=== PATIENT | male | born 1950 | race Caucasian/White ===

== ENCOUNTER 2017-09-26 19:23 | Inpatient (IN) | payer MEDICARE ==
[2017-09-26] MEDS ORDERED: Ketorolac 30 MG/ML SDV IVPUSH ONE (19:34)
[2017-09-26] MEDS: Sodium Chloride 0.9% 10 ML Syringe FLUSH PRN ×2 (19:42→19:43)
--- NOTE | 2017-09-26 19:57 | EDM.PDOC ---
ED HPI GENERAL MEDICAL PROBLEM - General Chief Complaint: Abdominal Pain Stated Complaint: STOMACH PAIN Time Seen by Provider: 09/26/17 19:23 Source of Information: Reports: Patient, Family History Limitations: Reports: No Limitations - History of Present Illness INITIAL COMMENTS - FREE TEXT/NARRATIVE: 67 y.o.w.m in prev healthy condition, came with his SO to the ed 5 days after he noticed abd. pain which was getting so bad deciding to come to the ED. No Trauma, no prev surgeries. worst pain at his left lower abdomen, no blood in stool. No N/V/D no Dizziness, no other acute medical issues. BP127/97 temp 36.8 RR 18 Pulse ox 98% on RA, pulse 87. Onset Date: 09/21/17 Onset Time: 06:00 Duration: Day(s):, Getting Worse Location: Reports: Abdomen Quality: Reports: Ache, Burning Severity: Moderate Improves with: Reports: Rest Worsens with: Reports: Movement Context: Reports: Other Lower Abdominal Pain Score (Numeric/FACES): 10 - Related Data Allergies Allergy/AdvReac Type Severity Reaction Status Date / Time No Known Allergies Allergy Verified 09/26/17 19:29 Home Meds: Home Meds NK [No Known Home Meds] 09/26/17 [History] ED ROS GENERAL - Review of Systems Review Of Systems: See Below Constitutional: Reports: No Symptoms HEENT: Reports: No Symptoms Respiratory: Reports: No Symptoms Cardiovascular: Reports: No Symptoms Endocrine: Reports: No Symptoms GI/Abdominal: Reports: Abdominal Pain : Reports: No Symptoms Musculoskeletal: Reports: No Symptoms Skin: Reports: No Symptoms Neurological: Reports: No Symptoms Psychiatric: Reports: No Symptoms Hematologic/Lymphatic: Reports: No Symptoms Immunologic: Reports: No Symptoms ED EXAM, GI/ABD - Physical Exam Exam: See Below Exam Limited By: No Limitations General Appearance: Alert, WD/WN, Moderate Distress Eyes: Bilateral: Normal Appearance Ears: Normal External Exam Nose: Normal Inspection, Normal Mucosa Throat/Mouth: Normal Inspection, Normal Lips Head: Atraumatic, Normocephalic Neck: Normal Inspection, Supple, Non-Tender, Full Range of Motion Respiratory/Chest: No Respiratory Distress, Lungs Clear, Normal Breath Sounds, No Accessory Muscle Use, Chest Non-Tender Cardiovascular: Normal Peripheral Pulses, Regular Rate, Rhythm, No Edema GI/Abdominal Exam: Distended, Guarding, Rigid, Tender, Abnormal Bowel Sounds (Male) Exam: No Hernia Rectal (Males) Exam: Deferred Back Exam: Normal Inspection, Full Range of Motion Extremities: Normal Inspection, Normal Range of Motion, Non-Tender, No Pedal Edema, Normal Capillary Refill Neurological: Alert, Oriented, CN II-XII Intact, Normal Cognition, Abnormal Gait (due to abd.pain) Psychiatric: Normal Affect, Normal Mood Skin Exam: Warm, Dry, Intact, Normal Color, No Rash Lymphatic: No Adenopathy EKG INTERPRETATION EKG Date: 09/26/17 Time: 22:57 Rhythm: NSR Rate (Beats/Min): 106 [place]: LAD-Left [place] Deviation P-Wave: Present QRS: Normal ST-T: Normal QT: Normal Comparison: NA - No Prior EKG Course - Vital Signs Text/Narrative:: 67 y.o.w.m in prev healthy condition, came with his SO to the ed 5 days after he noticed abd. pain which was getting so bad deciding to come to the ED. No Trauma, no prev surgeries. worst pain at his left lower abdomen, no blood in stool. No N/V/D no Dizziness, no other acute medical issues. BP127/97 temp 36.8 RR 18 Pulse ox 98% on RA, pulse 87. PE: Prev healthy 67 y.o.w.m came to the ed 5 days after he noticed left lower abd.pain which got progressively, promting to coem to the ED today. No prev abd. surgeries. Imaging: Perforated sigmoid diverticulitis with abdominal pneumoperitoneum, early appendicitis Labs: NL WBG Nl HGB/HCT UA neg Impression: Perforated Sigmoid Diverticulitis with abdominal pneumoperitoneum, early appendicitis 10.15pm Consultation: Dr. Calles, surgeon: Will see Pt in the ED, call OR group Plan: abd. surgery admit as inpatient Last Recorded V/S: Last Vital Signs Temp 37.2 C 09/27/17 03:05 Pulse 78 09/27/17 03:35 Resp 18 09/27/17 03:35 BP 112/72 09/27/17 03:35 Pulse Ox 94 L 09/27/17 03:35 - Orders/Labs/Meds Orders: Active Orders 24 hr Category Date Time Status Abdomen Pelvis w Cont [CT] Stat Exams 09/26/17 19:51 Taken CULTURE ANAEROBIC [RM] Routine Lab 09/27/17 00:10 Received CULTURE ROUTINE + SMEAR [RM] Routine Lab 09/27/17 00:10 Received UA W/MICROSCOPIC [URIN] Stat Lab 09/26/17 20:03 Ordered Diatrizoate [place]/Diatrizoate Na [Gastrografin 37%] Med 09/26/17 21:00 Active 30 ml PO . DIRECTED Piperacillin/Tazobactam [Zosyn] 3.375 gm Med 09/26/17 22:30 Active Sodium Chloride 0.9% [Normal Saline] 50 ml IV Q6H Sodium Chloride 0.9% [Normal Saline] 1,000 ml Med 09/26/17 22:30 Active IV ASDIRECTED Sodium Chloride 0.9% [Saline Flush] Med 09/26/17 19:32 Active 10 ml FLUSH ASDIRECTED PRN Peripheral IV Insertion Adult [OM.PC] Routine Oth 09/26/17 19:32 Ordered EKG 12 Lead [EK] Routine Ther 09/26/17 22:44 Ordered Medication Orders Hydrocodone Bitart/Acetaminophen ([place] 325-5 Mg) 1 tab PO Q4H PRN PRN Reason: Pain (mild 1-3) Diatrizoate Meglum/Diatrizoate Sod (Gastrografin 37%) 30 ml PO . DIRECTED [facility] Last Admin: 09/26/17 21:45 Dose: 30 ml Enoxaparin Sodium (Lovenox) 40 mg SUBCUT Q24H [facility] Piperacillin Sod/Tazobactam (Sod 3.375 gm/ Sodium Chloride) 50 mls @ 100 mls/ hr IV Q6H FRANCINE Stop: 10/01/17 22:31 Last Admin: 09/26/17 22:29 Dose: 100 mls/hr Sodium Chloride (Normal Saline) 1,000 mls @ 125 mls/hr IV ASDIRECTED FRANCINE Last Admin: 09/26/17 22:27 Dose: 125 mls/hr Lactated Ringer's (Ringers, Lactated) 1,000 mls @ 125 mls/hr IV ASDIRECTED [facility] Morphine Sulfate (Morphine Staff Research Associate 30 Mg In 30 Ml) 0 mg IV ASDIRECTED PRN; Protocol PRN Reason: Pain (severe 7-10) Last Admin: 09/27/17 02:58 Dose: 30 mg Naloxone HCl (Narcan) 0.4 mg IVPUSH Q2M PRN PRN Reason: Respiratory Distress Pantoprazole Sodium (Protonix Iv) 40 mg IVPUSH DAILY FRANCINE Promethazine HCl (Phenergan) 25 mg IM Q6H PRN PRN Reason: Nausea Sodium Chloride (Saline Flush) 10 ml FLUSH ASDIRECTED PRN PRN Reason: Keep Vein Open Last Admin: 09/27/17 02:25 Dose: 10 ml Admin: 09/26/17 19:43 Dose: 10 ml Admin: 09/26/17 19:42 Dose: 10 ml Labs: Laboratory Tests 09/26/17 09/26/17 09/26/17 Range/Units 19:52 19:52 20:03 WBC 11.6 (4.5-12.0) X10-3/uL RBC 5.10 (4.30-5.75) x10(6)uL Hgb 15.7 H (11.5-15.5) g/dL Hct 47.7 (30.0-51.3) % MCV 93.6 (80-96) fL MCH 30.8 (27.7-33.6) pg MCHC 32.9 (32.2-35.4) g/dL RDW 12.9 (11.5-15.5) % Plt Count 213 (125-369) X10(3)uL MPV 8.6 (7.4-10.4) fL Neut % (Auto) 76.6 (46-82) % Lymph % (Auto) 11.7 L (13-37) % [place] % (Auto) 8.2 (4-12) % Eos % (Auto) 1 (1.0-5.0) % Baso % (Auto) 2 (0-2) % Neut # (Auto) 8.9 H (1.6-8.3) # Lymph # (Auto) 1.4 (0.6-5.0) # [place] # (Auto) 0.9 (0.0-1.3) # Eos # (Auto) 0.1 (0.0-0.8) # Baso # (Auto) 0.3 H (0.0-0.2) # Sodium 138 (135-145) mmol/L Potassium 3.8 (3.5-5.3) mmol/L Chloride 103 (100-110) mmol/L Carbon Dioxide 26 (21-32) mmol/L BUN 17 (7-18) mg/dL Creatinine 1.3 (0.70-1.30) mg/dL Est Cr Clr Drug Dosing 56.65 mL/min Estimated GFR (MDRD) 55 L (>60) BUN/Creatinine Ratio 13.1 (9-20) Glucose 123 H (80-116) mg/dL Calcium 8.7 (8.6-10.2) mg/dL Total Bilirubin 0.6 (0.1-1.3) mg/dL Direct Bilirubin 0.16 (0.10-0.20) mg/dL AST 51 H (5-25) IU/L ALT 54 H (12-36) U/L Alkaline Phosphatase 89 (56-112) IU/L Total Protein 7.6 (6.0-8.0) g/dL Albumin 3.3 (3.2-4.6) g/dL Amylase 54 (25-115) U/L Urine Color Yellow (YELLOW) Urine Appearance Clear (CLEAR) Urine pH 5.0 (5.0-6.5) Ur Specific [place] 1.030 H (1.010-1.025) Urine Protein Negative (NEGATIVE) mg/dL Urine Glucose (UA) Normal (NEGATIVE) mg/dL Urine Ketones Negative (NEGATIVE) mg/dL Urine Occult Blood Negative (NEGATIVE) Urine Nitrite Negative (NEGATIVE) Urine Bilirubin Negative (NEGATIVE) Urine Urobilinogen 1 H (NEGATIVE) mg/dL Ur Leukocyte Esterase Negative (NEGATIVE) Urine RBC 0-5 (0) Urine WBC 0-5 (0) Ur Squamous Epith Cells Rare (NS,R,O) Urine Bacteria Few H (NS) Meds: Medications Generic Name Dose Route Start Last Admin Trade Name Freq PRN Reason Stop Dose Admin Hydrocodone Bitart/Acetaminophen 1 tab 09/27/17 01:19 [place] 325-5 Mg PO Q4H PRN Pain (mild 1-3) Diatrizoate Meglum/Diatrizoate Sod 30 ml 09/26/17 21:00 09/26/17 21:45 Gastrografin 37% PO 30 ml . DIRECTED FRANCINE Administration Enoxaparin Sodium 40 mg 09/28/17 09:00 Lovenox SUBCUT Q24H FRANCINE Piperacillin Sod/Tazobactam 50 mls @ 100 mls/hr 09/26/17 22:30 09/26/17 22:29 Sod 3.375 gm/ Sodium Chloride IV 10/01/17 22:31 100 mls/hr Q6H FRANCINE Administration Sodium Chloride 1,000 mls @ 125 mls/hr 09/26/17 22:30 09/26/17 22:27 Normal Saline IV 125 mls/hr ASDIRECTED FRANCINE Administration Lactated Ringer's 1,000 mls @ 125 mls/hr 09/27/17 01:30 Ringers, Lactated IV ASDIRECTED FRANCINE Morphine Sulfate 0 mg 09/27/17 01:28 09/27/17 02:58 Morphine Staff Research Associate 30 Mg In 30 Ml IV 30 mg ASDIRECTED PRN Administration Pain (severe 7-10) Protocol Naloxone HCl 0.4 mg 09/27/17 01:28 Narcan IVPUSH Q2M PRN Respiratory Distress Pantoprazole Sodium 40 mg 09/27/17 09:00 Protonix Iv IVPUSH DAILY FRANCINE Promethazine HCl 25 mg 09/27/17 01:19 Phenergan IM Q6H PRN Nausea Sodium Chloride 10 ml 09/26/17 19:32 09/27/17 02:25 Saline Flush FLUSH 10 ml ASDIRECTED PRN Administration Keep Vein Open Discontinued Medications Generic Name Dose Route Start Last Admin Trade Name Freq PRN Reason Stop Dose Admin Iopamidol 100 ml 09/26/17 20:57 09/26/17 21:45 Isovue-370 (76%) IV 09/26/17 20:58 93 ml . DIRECTED ONE Administration Ketorolac Tromethamine 30 mg 09/26/17 19:34 09/26/17 19:41 Toradol IVPUSH 09/26/17 19:35 30 mg ONETIME ONE Administration Departure - Departure Time of Disposition: 23:00 Disposition: Admitted As Inpatient 68 Condition: Fair Clinical Impression: Perforation of sigmoid colon due to diverticulitis - Discharge Information - My Orders Last 24 Hours: My Active Orders 09/26/17 19:32 Sodium Chloride 0.9% [Saline Flush] 10 ml FLUSH ASDIRECTED PRN Peripheral IV Insertion Adult [OM.PC] Routine 09/26/17 19:51 Abdomen Pelvis w Cont [CT] Stat 09/26/17 20:03 UA W/MICROSCOPIC [URIN] Stat 09/26/17 21:00 Diatrizoate [place]/Diatrizoate Na [Gastrografin 37%] 30 ml PO . DIRECTED 09/26/17 22:30 Piperacillin/Tazobactam [Zosyn] 3.375 gm Sodium Chloride 0.9% [Normal Saline] 50 ml IV Q6H Sodium Chloride 0.9% [Normal Saline] 1,000 ml IV ASDIRECTED 09/26/17 22:44 EKG 12 Lead [EK] Routine - Assessment/Plan Last 24 Hours: My Active Orders 09/26/17 19:32 Sodium Chloride 0.9% [Saline Flush] 10 ml FLUSH ASDIRECTED PRN Peripheral IV Insertion Adult [OM.PC] Routine 09/26/17 19:51 Abdomen Pelvis w Cont [CT] Stat 09/26/17 20:03 UA W/MICROSCOPIC [URIN] Stat 09/26/17 21:00 Diatrizoate [place]/Diatrizoate Na [Gastrografin 37%] 30 ml PO . DIRECTED 09/26/17 22:30 Piperacillin/Tazobactam [Zosyn] 3.375 gm Sodium Chloride 0.9% [Normal Saline] 50 ml IV Q6H Sodium Chloride 0.9% [Normal Saline] 1,000 ml IV ASDIRECTED 09/26/17 22:44 EKG 12 Lead [EK] Routine
[2017-09-26] MEDS ORDERED: Iopamidol 755 Mg/ML 100 ML Bottle IV ONE (20:57)
[2017-09-26] MEDS ORDERED: Diatrizoate Meglumine/Diatrizoate Sodium 37% 30 ML Bottle PO SCH (21:00)
[2017-09-26] MEDS: Sodium Chloride 0.9% 1,000 ML IV SCH (22:27)
[2017-09-26] MEDS: Piperacillin/Tazobactam 3.375 GM in Sodium Chloride 0.9% 50 ML IV SCH (22:29)
--- NOTE | 2017-09-26 22:58 | PCM.HP ---
H&P History of Present Illness - General Date of Service: 09/26/17 Source of Information: Patient History Limitations: Reports: No Limitations - History of Present Illness Initial Comments - Free Text/Narative: 3 day hx of worsening LLQ abd pain Duration of Symptoms: Reports: Day(s): (3) Location: Reports: Abdomen (LLQ) Quality: Reports: Sharp Severity: Severe Improves with: Reports: Medication (reveived Toradol in ER) Worsens with: Reports: Movement Associated Symptoms: Reports: No Other Symptoms. Denies: Nausea/Vomiting Lower Abdominal Pain Score (Numeric/FACES): 10 - Related Data Allergies/Adverse Reactions: Allergies Allergy/AdvReac Type Severity Reaction Status Date / Time No Known Allergies Allergy Verified 09/26/17 19:29 Home Medications: Home Meds NK [No Known Home Meds] 09/26/17 [History] Past Medical History - Past Surgical History HEENT Surgical History: Reports: Tonsillectomy Social & Family History - Tobacco Use Smoking Status *Q: Never Smoker - Recreational Drug Use Recreational Drug Use: No H&P Review of Systems - Review of Systems: Review Of Systems: See Below General: Denies: Fever, Chills HEENT: Reports: No Symptoms Pulmonary: Reports: No Symptoms Cardiovascular: Reports: No Symptoms Gastrointestinal: Reports: Abdominal Pain Genitourinary: Reports: No Symptoms Neurological: Reports: No Symptoms Exam - Exam Exam: See Below - Vital Signs Vital Signs: Last Vital Signs Temp 98.7 F 09/26/17 19:31 Pulse 92 09/26/17 19:31 Resp 18 09/26/17 19:31 BP 128/97 H 09/26/17 19:31 Pulse Ox 98 09/26/17 19:31 Weight: 81.647 kg - Exam General: Alert, Oriented Lungs: Clear to Auscultation, Normal Respiratory Effort Cardiovascular: Regular Rate, Regular Rhythm GI/Abdominal Exam: Rigid, Tender (mostly in LLQ). No: Hernia, Mass (Male) Exam: Normal Inspection. No: No Hernia - Patient Data Lab Results Last 24 hrs: Laboratory Results - last 24 hr 09/26/17 09/26/17 09/26/17 Range/Units 19:52 19:52 20:03 WBC 11.6 (4.5-12.0) X10-3/uL RBC 5.10 (4.30-5.75) x10(6)uL Hgb 15.7 H (11.5-15.5) g/dL Hct 47.7 (30.0-51.3) % MCV 93.6 (80-96) fL MCH 30.8 (27.7-33.6) pg MCHC 32.9 (32.2-35.4) g/dL RDW 12.9 (11.5-15.5) % Plt Count 213 (125-369) X10(3)uL MPV 8.6 (7.4-10.4) fL Neut % (Auto) 76.6 (46-82) % Lymph % (Auto) 11.7 L (13-37) % [place] % (Auto) 8.2 (4-12) % Eos % (Auto) 1 (1.0-5.0) % Baso % (Auto) 2 (0-2) % Neut # (Auto) 8.9 H (1.6-8.3) # Lymph # (Auto) 1.4 (0.6-5.0) # [place] # (Auto) 0.9 (0.0-1.3) # Eos # (Auto) 0.1 (0.0-0.8) # Baso # (Auto) 0.3 H (0.0-0.2) # Sodium 138 (135-145) mmol/L Potassium 3.8 (3.5-5.3) mmol/L Chloride 103 (100-110) mmol/L Carbon Dioxide 26 (21-32) mmol/L BUN 17 (7-18) mg/dL Creatinine 1.3 (0.70-1.30) mg/dL Est Cr Clr Drug Dosing 56.65 mL/min Estimated GFR (MDRD) 55 L (>60) BUN/Creatinine Ratio 13.1 (9-20) Glucose 123 H (80-116) mg/dL Calcium 8.7 (8.6-10.2) mg/dL Total Bilirubin 0.6 (0.1-1.3) mg/dL Direct Bilirubin 0.16 (0.10-0.20) mg/dL AST 51 H (5-25) IU/L ALT 54 H (12-36) U/L Alkaline Phosphatase 89 (56-112) IU/L Total Protein 7.6 (6.0-8.0) g/dL Albumin 3.3 (3.2-4.6) g/dL Amylase 54 (25-115) U/L Urine Color Yellow (YELLOW) Urine Appearance Clear (CLEAR) Urine pH 5.0 (5.0-6.5) Ur Specific [place] 1.030 H (1.010-1.025) Urine Protein Negative (NEGATIVE) mg/dL Urine Glucose (UA) Normal (NEGATIVE) mg/dL Urine Ketones Negative (NEGATIVE) mg/dL Urine Occult Blood Negative (NEGATIVE) Urine Nitrite Negative (NEGATIVE) Urine Bilirubin Negative (NEGATIVE) Urine Urobilinogen 1 H (NEGATIVE) mg/dL Ur Leukocyte Esterase Negative (NEGATIVE) Urine RBC 0-5 (0) Urine WBC 0-5 (0) Ur Squamous Epith Cells Rare (NS,R,O) Urine Bacteria Few H (NS) Result Diagrams: 09/26/17 19:52 09/26/17 19:52 Problem List Initiated/Reviewed/Updated: Yes Orders Last 24hrs: Active Orders 24 hr Category Date Time Status Bladder Scan [RC] ONETIME Care 09/26/17 19:48 Active EKG Documentation Completion [RC] ASDIRECTED Care 09/26/17 22:44 Active Abdomen Pelvis w Cont [CT] Stat Exams 09/26/17 19:51 Taken UA W/MICROSCOPIC [URIN] Stat Lab 09/26/17 20:03 Ordered Diatrizoate [place]/Diatrizoate Na [Gastrografin 37%] Med 09/26/17 21:00 Active 30 ml PO . DIRECTED Piperacillin/Tazobactam [Zosyn] 3.375 gm Med 09/26/17 22:30 Active Sodium Chloride 0.9% [Normal Saline] 50 ml IV Q6H Sodium Chloride 0.9% [Normal Saline] 1,000 ml Med 09/26/17 22:30 Active IV ASDIRECTED Sodium Chloride 0.9% [Saline Flush] Med 09/26/17 19:32 Active 10 ml FLUSH ASDIRECTED PRN Peripheral IV Insertion Adult [OM.PC] Routine Oth 09/26/17 19:32 Ordered EKG 12 Lead [EK] Routine Ther 09/26/17 22:44 Ordered Medication Orders Diatrizoate Meglum/Diatrizoate Sod (Gastrografin 37%) 30 ml PO . DIRECTED FRANCINE Last Admin: 09/26/17 21:45 Dose: 30 ml Piperacillin Sod/Tazobactam (Sod 3.375 gm/ Sodium Chloride) 50 mls @ 100 mls/ hr IV Q6H [facility] Last Admin: 09/26/17 22:29 Dose: 100 mls/hr Sodium Chloride (Normal Saline) 1,000 mls @ 125 mls/hr IV ASDIRECTED [facility] Last Admin: 09/26/17 22:27 Dose: 125 mls/hr Sodium Chloride (Saline Flush) 10 ml FLUSH ASDIRECTED PRN PRN Reason: Keep Vein Open Last Admin: 09/26/17 19:43 Dose: 10 ml Admin: 09/26/17 19:42 Dose: 10 ml Assessment/Plan Comment:: Perforated Diverticulitis with peritonitis Will go to OR for Expl Laparotomy and plan sigmoid colectomy and colostomy. Will check appendix and remove if abnormal. Risks and complications reviewed, consent obtained
[2017-09-27] MEDS ORDERED: Promethazine 25 MG/ML SDV IM PRN (01:19)
--- NOTE | 2017-09-27 01:19 | PCM.OPNOTE ---
- General Post-Op/Procedure Note Date of Surgery/Procedure: 09/27/17 Operative Procedure(s): Sigmoid Colectomy / Colostomy Findings: Perf Diverticulitis Pre Op Diagnosis: Perforated Diverticulitis Post-Op Diagnosis: Same Anesthesia Technique: General ET Tube Primary Surgeon: Manny Calles Pathology: Sig Colon EBL in mLs: 100 Complications: None Condition: Good
[2017-09-27] MEDS ORDERED: Naloxone 0.4 MG/ML SDV IVPUSH PRN (01:28)
[2017-09-27] MEDS: Sodium Chloride 0.9% 10 ML Syringe FLUSH PRN ×4 (02:25→21:51)
[2017-09-27] MEDS: Morphine PF 30 MG/30 ML PCA Vial IV PRN ×2 (02:58→23:35)
[2017-09-27] MEDS: Piperacillin/Tazobactam 3.375 GM in Sodium Chloride 0.9% 50 ML IV SCH ×4 (05:00→21:48)
[2017-09-27] MEDS: Sodium Chloride 0.9% 1,000 ML IV SCH (06:15)
[2017-09-27] MEDS: Pantoprazole 40 MG Vial IVPUSH SCH (08:49)
--- NOTE | 2017-09-27 08:54 | OR ---
DATE OF OPERATION: 09/27/2017 SURGEON: Manny Calles MD PREOPERATIVE DIAGNOSIS: Perforated Sigmoid diverticulitis. POSTOPERATIVE DIAGNOSIS: Perforated Sigmoid diverticulitis. PROCEDURE: Sigmoid colectomy with colostomy formation. ANESTHESIA: General. DESCRIPTION OF PROCEDURE: The patient was brought to the operating room, where general endotracheal anesthesia was administered. A [place] catheter was inserted with clear yellow urine return. The abdomen was clipped, prepped with ChloraPrep and draped sterilely. Flowtrons had been applied. A midline incision was made from above the umbilicus to the pubis and extended into the peritoneal cavity without difficulty. General exploration revealed an inflammatory mass in the lower abdomen adherent to the posterior wall of the bladder. The cecum was visualized and the appendix was inspected and there was no acute inflammation. It is slightly larger than normal, but no evidence of appendicitis. The liver, gallbladder, and stomach were normal to palpation. Orogastric tube was placed to decompress the stomach. Next, the wound protector was placed and [place] retractor system set up and small bowel retracted. The inflammatory mass easily peeled off the posterior wall of the bladder with some cloudy yellowish exudate present. This did not appear to be an abscess cavity, this was sent for aerobic and anaerobic culture. There was a well-defined area in the mid sigmoid colon where the diverticulitis began. The mesocolon was scored on each side at this level. The mesocolon was transected with the LigaSure and the colon transected at this level with a KERI 45 stapler. Next, the LigaSure was used to transect the mesocolon distally. I stayed closer to the colon and did not go deeper and search for ureters because of the inflammation present. The sigmoid mesocolon was clamped with peons and divided using the ligature and 0 Vicryl used to tie any areas that may have contained vasculature. Once I got down to the rectosigmoid junction, where the bowel again felt normal, this was thinned off using electrocautery and then transected with a TA 60 stapler. The specimen was removed. Staple lines were inspected and were secure. Pelvis was irrigated with a liter of warm saline and return was clear and hemostasis assured. The retractor system was taken down. The colostomy formation was performed by making a 2 cm diameter hole in the left lower quadrant skin and extending this down to the anterior rectus fascia. This was incised with electrocautery and the rectus muscle and peritoneum entered. This was dilated to 3 finger breaths. The end of the colon was brought through this and secured with 3-0 Vicryl approximately 3 cm proximal to the colon end.. Midline incision was closed with #2 Surgipro. Subcutaneous tissues was irrigated and skin closed loosely with zheng. The colostomy was then matured by cutting off the staple line and each quadrant was secured to the skin using 4-0 chromic incorporating the seromuscular layer and mucosal edge. In between each quadrant, the mucosal edges were reapproximated to the skin with 4-0 chromic. The ostomy appliance was cut to size and place gauze dressing was placed over the midline incision. The patient tolerated the procedure well. Estimated blood loss was 100 mL. He returned to postanesthesia in stable condition. /[id number] ARMANDO/GARRETT VICENTE
[2017-09-27] MEDS: Lactated Ringers 1,000 ML IV SCH ×3 (09:10→18:41)
[2017-09-28] MEDS: Lactated Ringers 1,000 ML IV SCH ×3 (03:49→20:49)
[2017-09-28] MEDS: Piperacillin/Tazobactam 3.375 GM in Sodium Chloride 0.9% 50 ML IV SCH ×4 (03:51→22:34)
[2017-09-28] MEDS: Sodium Chloride 0.9% 10 ML Syringe FLUSH PRN ×5 (03:53→16:59)
[2017-09-28] MEDS: Pantoprazole 40 MG Vial IVPUSH SCH (08:04)
[2017-09-28] MEDS ORDERED: Sodium Chloride 0.9% 250 ML IV SCH (08:30)
[2017-09-28] MEDS: Enoxaparin 40 MG/0.4 ML Syringe SUBCUT SCH (09:00)
[2017-09-28] MEDS ORDERED: Ketorolac 30 MG/ML SDV IVPUSH SCH (10:45)
--- NOTE | 2017-09-28 10:48 | PCM.SURGPN ---
- General Info Date of Service: 09/28/17 POD#: 1 Functional Status: Reports: Pain Controlled, Ambulating - Review of Systems General: Reports: No Symptoms Pulmonary: Reports: No Symptoms Cardiovascular: Reports: No Symptoms Gastrointestinal: Reports: No Symptoms - Patient Data Vitals - Most Recent: Last Vital Signs Temp 98.3 F 09/28/17 07:37 Pulse 83 09/28/17 07:37 Resp 16 09/28/17 07:37 BP 112/57 L 09/28/17 07:37 Pulse Ox 93 L 09/28/17 07:37 Weight - Most Recent: 89.953 kg I&O - Last 24 Hours: Intake & Output 09/27/17 09/28/17 09/28/17 22:59 06:59 14:59 Intake Total 619 778 Output Total 275 350 Balance 344 428 Owen Results Last 24 Hrs: Microbiology 09/27/17 00:10 Gram Stain - Final Pelvic Abscess Med Orders - Current: Current Medications Hydrocodone Bitart/Acetaminophen ([place] 325-5 Mg) 1 tab PO Q4H PRN PRN Reason: Pain (mild 1-3) Diatrizoate Meglum/Diatrizoate Sod (Gastrografin 37%) 30 ml PO . DIRECTED [facility] Last Admin: 09/26/17 21:45 Dose: 30 ml Enoxaparin Sodium (Lovenox) 40 mg SUBCUT Q24H [facility] Last Admin: 09/28/17 09:00 Dose: 40 mg Piperacillin Sod/Tazobactam (Sod 3.375 gm/ Sodium Chloride) 50 mls @ 100 mls/ hr IV Q6H [facility] Stop: 10/01/17 22:31 Last Admin: 09/28/17 03:51 Dose: 100 mls/hr Lactated Ringer's (Ringers, Lactated) 1,000 mls @ 125 mls/hr IV ASDIRECTED [facility] Last Admin: 09/28/17 03:49 Dose: 125 mls/hr Ketorolac Tromethamine (Toradol) 30 mg IVPUSH Q6H [facility] Stop: 10/03/17 10:45 Morphine Sulfate (Morphine Wreath Machine Tender 30 Mg In 30 Ml) 0 mg IV ASDIRECTED PRN; Protocol PRN Reason: Pain (severe 7-10) Last Admin: 09/27/17 23:35 Dose: 30 mg Naloxone HCl (Narcan) 0.4 mg IVPUSH Q2M PRN PRN Reason: Respiratory Distress Pantoprazole Sodium (Protonix Iv) 40 mg IVPUSH DAILY [facility] Last Admin: 09/28/17 08:04 Dose: 40 mg Promethazine HCl (Phenergan) 25 mg IM Q6H PRN PRN Reason: Nausea Sodium Chloride (Saline Flush) 10 ml FLUSH ASDIRECTED PRN PRN Reason: Keep Vein Open Last Admin: 09/28/17 08:04 Dose: 10 ml Discontinued Medications Sodium Chloride (Normal Saline) 1,000 mls @ 125 mls/hr IV ASDIRECTED [facility] Last Admin: 09/27/17 06:15 Dose: 125 mls/hr Iopamidol (Isovue-370 (76%)) 100 ml IV . DIRECTED ONE Stop: 09/26/17 20:58 Last Admin: 09/26/17 21:45 Dose: 93 ml Ketorolac Tromethamine (Toradol) 30 mg IVPUSH ONETIME ONE Stop: 09/26/17 19:35 Last Admin: 09/26/17 19:41 Dose: 30 mg - Exam Wound/Incisions: Healing Well, Dressing Dry and Intact General: Alert, Oriented Lungs: Clear to Auscultation, Normal Respiratory Effort GI/Abdominal Exam: Soft - Problem List Review Problem List Initiated/Reviewed/Updated: Yes - My Orders Last 24 Hours: Active Orders 24 hr Category Date Time Status Enoxaparin [Lovenox] Med 09/28/17 09:00 Active 40 mg SUBCUT Q24H Ketorolac [Toradol] Med 09/28/17 10:45 Ordered 30 mg IVPUSH Q6H Medication Orders Hydrocodone Bitart/Acetaminophen ([place] 325-5 Mg) 1 tab PO Q4H PRN PRN Reason: Pain (mild 1-3) Diatrizoate Meglum/Diatrizoate Sod (Gastrografin 37%) 30 ml PO . DIRECTED [facility] Last Admin: 09/26/17 21:45 Dose: 30 ml Enoxaparin Sodium (Lovenox) 40 mg SUBCUT Q24H [facility] Last Admin: 09/28/17 09:00 Dose: 40 mg Piperacillin Sod/Tazobactam (Sod 3.375 gm/ Sodium Chloride) 50 mls @ 100 mls/ hr IV Q6H [facility] Stop: 10/01/17 22:31 Last Admin: 09/28/17 03:51 Dose: 100 mls/hr Admin: 09/27/17 21:48 Dose: 100 mls/hr Admin: 09/27/17 16:43 Dose: 100 mls/hr Admin: 09/27/17 10:55 Dose: 100 mls/hr Admin: 09/27/17 05:00 Dose: 100 mls/hr Admin: 09/26/17 22:29 Dose: 100 mls/hr Lactated Ringer's (Ringers, Lactated) 1,000 mls @ 125 mls/hr IV ASDIRECTED [facility] Last Admin: 09/28/17 03:49 Dose: 125 mls/hr Infusion: 09/28/17 02:41 Dose: 125 mls/hr Admin: 09/27/17 18:41 Dose: 125 mls/hr Infusion: 09/27/17 18:41 Dose: 125 mls/hr Admin: 09/27/17 11:41 Dose: 125 mls/hr Infusion: 09/27/17 11:41 Dose: 125 mls/hr Admin: 09/27/17 09:10 Dose: 125 mls/hr Ketorolac Tromethamine (Toradol) 30 mg IVPUSH Q6H [facility] Stop: 10/03/17 10:45 Morphine Sulfate (Morphine Wreath Machine Tender 30 Mg In 30 Ml) 0 mg IV ASDIRECTED PRN; Protocol PRN Reason: Pain (severe 7-10) Last Admin: 09/27/17 23:35 Dose: 30 mg Admin: 09/27/17 02:58 Dose: 30 mg Naloxone HCl (Narcan) 0.4 mg IVPUSH Q2M PRN PRN Reason: Respiratory Distress Pantoprazole Sodium (Protonix Iv) 40 mg IVPUSH DAILY [facility] Last Admin: 09/28/17 08:04 Dose: 40 mg Admin: 09/27/17 08:49 Dose: 40 mg Promethazine HCl (Phenergan) 25 mg IM Q6H PRN PRN Reason: Nausea Sodium Chloride (Saline Flush) 10 ml FLUSH ASDIRECTED PRN PRN Reason: Keep Vein Open Last Admin: 09/28/17 08:04 Dose: 10 ml Admin: 09/28/17 03:53 Dose: 10 ml Admin: 09/27/17 21:51 Dose: 10 ml Admin: 09/27/17 11:42 Dose: 10 ml Admin: 09/27/17 10:55 Dose: 10 ml Admin: 09/27/17 02:25 Dose: 10 ml Admin: 09/26/17 19:43 Dose: 10 ml Admin: 09/26/17 19:42 Dose: 10 ml - Assessment Assessment (Free Text/Narrative):: Doing well POD #1 - Plan Plan (Free Text/Narrative):: Cont as is D/C [employer] cont rate and add Toradol D/C [place]
[2017-09-28] MEDS: Ketorolac 30 MG/ML SDV IVPUSH SCH (17:50)
[2017-09-29] MEDS: Ketorolac 30 MG/ML SDV IVPUSH SCH ×4 (00:25→19:20)
[2017-09-29] MEDS: Morphine PF 30 MG/30 ML PCA Vial IV PRN (04:35)
[2017-09-29] MEDS: Lactated Ringers 1,000 ML IV SCH ×3 (04:36→22:24)
[2017-09-29] MEDS: Piperacillin/Tazobactam 3.375 GM in Sodium Chloride 0.9% 50 ML IV SCH ×4 (04:37→22:30)
[2017-09-29] MEDS: Enoxaparin 40 MG/0.4 ML Syringe SUBCUT SCH (09:33)
[2017-09-29] MEDS: Pantoprazole 40 MG Vial IVPUSH SCH (09:34)
--- NOTE | 2017-09-29 16:52 | PCM.SURGPN ---
- General Info Date of Service: 09/29/17 POD#: 2 Functional Status: Reports: Pain Controlled, Tolerating Diet - Review of Systems General: Reports: No Symptoms Gastrointestinal: Reports: No Symptoms - Patient Data Vitals - Most Recent: Last Vital Signs Temp 98.0 F 09/29/17 13:00 Pulse 83 09/29/17 13:00 Resp 16 09/29/17 13:00 BP 154/84 H 09/29/17 13:00 Pulse Ox 95 09/29/17 13:00 Weight - Most Recent: 89.953 kg I&O - Last 24 Hours: Intake & Output 09/29/17 09/29/17 09/29/17 06:59 14:59 22:59 Intake Total 978 500 Output Total 1160 1500 Balance -182 -1000 Owen Results Last 24 Hrs: Microbiology 09/27/17 00:10 Gram Stain - Final Pelvic Abscess Routine Culture - Preliminary Med Orders - Current: Current Medications Hydrocodone Bitart/Acetaminophen ([place] 325-5 Mg) 1 tab PO Q4H PRN PRN Reason: Pain (mild 1-3) Diatrizoate Meglum/Diatrizoate Sod (Gastrografin 37%) 30 ml PO . DIRECTED [facility] Last Admin: 09/26/17 21:45 Dose: 30 ml Enoxaparin Sodium (Lovenox) 40 mg SUBCUT Q24H [facility] Last Admin: 09/29/17 09:33 Dose: 40 mg Piperacillin Sod/Tazobactam (Sod 3.375 gm/ Sodium Chloride) 50 mls @ 100 mls/ hr IV Q6H [facility] Stop: 10/01/17 22:31 Last Admin: 09/29/17 11:53 Dose: 100 mls/hr Lactated Ringer's (Ringers, Lactated) 1,000 mls @ 100 mls/hr IV ASDIRECTED [facility] Last Admin: 09/29/17 12:59 Dose: 125 mls/hr Sodium Chloride (Normal Saline) 250 mls @ 100 mls/hr IV ASDIRECTED [facility] Last Admin: 09/28/17 10:53 Dose: 100 mls/hr Ketorolac Tromethamine (Toradol) 30 mg IVPUSH Q6H [facility] Stop: 10/03/17 12:01 Last Admin: 09/29/17 11:59 Dose: 30 mg Morphine Sulfate (Morphine Motorcoach Driver 30 Mg In 30 Ml) 0 mg IV ASDIRECTED PRN; Protocol PRN Reason: Pain (severe 7-10) Last Admin: 09/29/17 04:35 Dose: 30 mg Naloxone HCl (Narcan) 0.4 mg IVPUSH Q2M PRN PRN Reason: Respiratory Distress Pantoprazole Sodium (Protonix Iv) 40 mg IVPUSH DAILY [facility] Last Admin: 09/29/17 09:34 Dose: 40 mg Promethazine HCl (Phenergan) 25 mg IM Q6H PRN PRN Reason: Nausea Sodium Chloride (Saline Flush) 10 ml FLUSH ASDIRECTED PRN PRN Reason: Keep Vein Open Last Admin: 09/28/17 16:59 Dose: 10 ml Discontinued Medications Sodium Chloride (Normal Saline) 1,000 mls @ 125 mls/hr IV ASDIRECTED [facility] Last Admin: 09/27/17 06:15 Dose: 125 mls/hr Iopamidol (Isovue-370 (76%)) 100 ml IV . DIRECTED ONE Stop: 09/26/17 20:58 Last Admin: 09/26/17 21:45 Dose: 93 ml Ketorolac Tromethamine (Toradol) 30 mg IVPUSH ONETIME ONE Stop: 09/26/17 19:35 Last Admin: 09/26/17 19:41 Dose: 30 mg Ketorolac Tromethamine (Toradol) 30 mg IVPUSH Q6H [facility] Stop: 10/03/17 10:45 Last Admin: 09/28/17 12:16 Dose: 30 mg - Exam Wound/Incisions: Healing Well General: Alert, Oriented Lungs: Clear to Auscultation, Normal Respiratory Effort GI/Abdominal Exam: Soft, Non-Tender - Problem List Review Problem List Initiated/Reviewed/Updated: Yes - My Orders Last 24 Hours: Active Orders 24 hr Category Date Time Status BASIC METABOLIC PANEL,BMP [CHEM] Routine Lab 09/30/17 07:00 Ordered CBC W/O DIFF,HEMOGRAM [HEME] Routine Lab 09/30/17 07:00 Ordered Ketorolac [Toradol] Med 09/28/17 18:00 Active 30 mg IVPUSH Q6H Medication Orders Hydrocodone Bitart/Acetaminophen ([place] 325-5 Mg) 1 tab PO Q4H PRN PRN Reason: Pain (mild 1-3) Diatrizoate Meglum/Diatrizoate Sod (Gastrografin 37%) 30 ml PO . DIRECTED [facility] Last Admin: 09/26/17 21:45 Dose: 30 ml Enoxaparin Sodium (Lovenox) 40 mg SUBCUT Q24H [facility] Last Admin: 09/29/17 09:33 Dose: 40 mg Admin: 09/28/17 09:00 Dose: 40 mg Piperacillin Sod/Tazobactam (Sod 3.375 gm/ Sodium Chloride) 50 mls @ 100 mls/ hr IV Q6H [facility] Stop: 10/01/17 22:31 Last Admin: 09/29/17 11:53 Dose: 100 mls/hr Admin: 09/29/17 04:37 Dose: 100 mls/hr Admin: 09/28/17 22:34 Dose: 100 mls/hr Admin: 09/28/17 16:21 Dose: 100 mls/hr Admin: 09/28/17 10:52 Dose: 100 mls/hr Admin: 09/28/17 03:51 Dose: 100 mls/hr Admin: 09/27/17 21:48 Dose: 100 mls/hr Admin: 09/27/17 16:43 Dose: 100 mls/hr Admin: 09/27/17 10:55 Dose: 100 mls/hr Admin: 09/27/17 05:00 Dose: 100 mls/hr Admin: 09/26/17 22:29 Dose: 100 mls/hr Lactated Ringer's (Ringers, Lactated) 1,000 mls @ 100 mls/hr IV ASDIRECTED [facility] Last Admin: 09/29/17 12:59 Dose: 125 mls/hr Infusion: 09/29/17 12:36 Dose: 125 mls/hr Admin: 09/29/17 04:36 Dose: 125 mls/hr Infusion: 09/29/17 04:36 Dose: 125 mls/hr Admin: 09/28/17 20:49 Dose: 125 mls/hr Infusion: 09/28/17 20:07 Dose: 125 mls/hr Admin: 09/28/17 12:07 Dose: 125 mls/hr Infusion: 09/28/17 11:49 Dose: 125 mls/hr Admin: 09/28/17 03:49 Dose: 125 mls/hr Infusion: 09/28/17 02:41 Dose: 125 mls/hr Admin: 09/27/17 18:41 Dose: 125 mls/hr Infusion: 09/27/17 18:41 Dose: 125 mls/hr Admin: 09/27/17 11:41 Dose: 125 mls/hr Infusion: 09/27/17 11:41 Dose: 125 mls/hr Admin: 09/27/17 09:10 Dose: 125 mls/hr Sodium Chloride (Normal Saline) 250 mls @ 100 mls/hr IV ASDIRECTED [facility] Last Admin: 09/28/17 10:53 Dose: 100 mls/hr Ketorolac Tromethamine (Toradol) 30 mg IVPUSH Q6H [facility] Stop: 10/03/17 12:01 Last Admin: 09/29/17 11:59 Dose: 30 mg Admin: 09/29/17 05:46 Dose: 30 mg Admin: 09/29/17 00:25 Dose: 30 mg Admin: 09/28/17 17:50 Dose: 30 mg Morphine Sulfate (Morphine Motorcoach Driver 30 Mg In 30 Ml) 0 mg IV ASDIRECTED PRN; Protocol PRN Reason: Pain (severe 7-10) Last Admin: 09/29/17 04:35 Dose: 30 mg Admin: 09/27/17 23:35 Dose: 30 mg Admin: 09/27/17 02:58 Dose: 30 mg Naloxone HCl (Narcan) 0.4 mg IVPUSH Q2M PRN PRN Reason: Respiratory Distress Pantoprazole Sodium (Protonix Iv) 40 mg IVPUSH DAILY [facility] Last Admin: 09/29/17 09:34 Dose: 40 mg Admin: 09/28/17 08:04 Dose: 40 mg Admin: 09/27/17 08:49 Dose: 40 mg Promethazine HCl (Phenergan) 25 mg IM Q6H PRN PRN Reason: Nausea Sodium Chloride (Saline Flush) 10 ml FLUSH ASDIRECTED PRN PRN Reason: Keep Vein Open Last Admin: 09/28/17 16:59 Dose: 10 ml Admin: 09/28/17 12:16 Dose: 10 ml Admin: 09/28/17 10:47 Dose: 10 ml Admin: 09/28/17 08:04 Dose: 10 ml Admin: 09/28/17 03:53 Dose: 10 ml Admin: 09/27/17 21:51 Dose: 10 ml Admin: 09/27/17 11:42 Dose: 10 ml Admin: 09/27/17 10:55 Dose: 10 ml Admin: 09/27/17 02:25 Dose: 10 ml Admin: 09/26/17 19:43 Dose: 10 ml Admin: 09/26/17 19:42 Dose: 10 ml - Assessment Assessment (Free Text/Narrative):: Doing well - Plan Plan (Free Text/Narrative):: Cont clear liquids Decrease IV Fluids Check labs in am
[2017-09-29] MEDS: Sodium Chloride 0.9% 10 ML Syringe FLUSH PRN (22:37)
[2017-09-30] MEDS: Ketorolac 30 MG/ML SDV IVPUSH SCH ×5 (00:14→22:59)
[2017-09-30] MEDS: Piperacillin/Tazobactam 3.375 GM in Sodium Chloride 0.9% 50 ML IV SCH ×4 (04:43→22:27)
[2017-09-30] MEDS: Sodium Chloride 0.9% 10 ML Syringe FLUSH PRN ×5 (05:15→23:00)
[2017-09-30] MEDS: Lactated Ringers 1,000 ML IV SCH ×2 (08:56→21:56)
[2017-09-30] MEDS: Enoxaparin 40 MG/0.4 ML Syringe SUBCUT SCH (09:01)
[2017-09-30] MEDS: Pantoprazole 40 MG Vial IVPUSH SCH (09:01)
--- NOTE | 2017-09-30 13:13 | PCM.SURGPN ---
- General Info Date of Service: 09/30/17 POD#: 3 Functional Status: Reports: Pain Controlled, Tolerating Diet, Ambulating, Urinating - Review of Systems General: Reports: No Symptoms Gastrointestinal: Reports: No Symptoms, Other (Ostomy functoning well) - Patient Data Vitals - Most Recent: Last Vital Signs Temp 97.9 F 09/30/17 08:00 Pulse 65 09/30/17 08:00 Resp 18 09/30/17 08:00 BP 140/78 09/30/17 08:00 Pulse Ox 92 L 09/30/17 08:00 Weight - Most Recent: 89.953 kg I&O - Last 24 Hours: Intake & Output 09/29/17 09/30/17 09/30/17 22:59 06:59 14:59 Intake Total 1600 760 Output Total 875 1750 200 Balance 725 -990 -200 Lab Results Last 24 Hrs: Laboratory Results - last 24 hr 09/30/17 09/30/17 Range/Units 06:20 06:20 WBC 6.9 (4.5-12.0) X10-3/uL RBC 4.17 L (4.30-5.75) x10(6)uL Hgb 13.1 (11.5-15.5) g/dL Hct 39.0 (30.0-51.3) % MCV 93.5 (80-96) fL MCH 31.5 (27.7-33.6) pg MCHC 33.7 (32.2-35.4) g/dL RDW 12.3 (11.5-15.5) % Plt Count 190 (125-369) X10(3)uL Sodium 140 (135-145) mmol/L Potassium 3.7 (3.5-5.3) mmol/L Chloride 105 (100-110) mmol/L Carbon Dioxide 28 (21-32) mmol/L BUN 12 (7-18) mg/dL Creatinine 1.0 (0.70-1.30) mg/dL Est Cr Clr Drug Dosing 73.65 mL/min Estimated GFR (MDRD) > 60 (>60) BUN/Creatinine Ratio 12.0 (9-20) Glucose 89 (80-116) mg/dL Calcium 8.6 (8.6-10.2) mg/dL Owen Results Last 24 Hrs: Microbiology 09/27/17 00:10 Gram Stain - Final Pelvic Abscess Routine Culture - Preliminary Med Orders - Current: Current Medications Hydrocodone Bitart/Acetaminophen ([place] 325-5 Mg) 1 tab PO Q4H PRN PRN Reason: Pain (mild 1-3) Diatrizoate Meglum/Diatrizoate Sod (Gastrografin 37%) 30 ml PO . DIRECTED [facility] Last Admin: 09/26/17 21:45 Dose: 30 ml Enoxaparin Sodium (Lovenox) 40 mg SUBCUT Q24H [facility] Last Admin: 09/30/17 09:01 Dose: 40 mg Piperacillin Sod/Tazobactam (Sod 3.375 gm/ Sodium Chloride) 50 mls @ 100 mls/ hr IV Q6H [facility] Stop: 10/01/17 22:31 Last Admin: 09/30/17 10:56 Dose: 100 mls/hr Lactated Ringer's (Ringers, Lactated) 1,000 mls @ 100 mls/hr IV ASDIRECTED [facility] Last Admin: 09/30/17 08:56 Dose: 100 mls/hr Sodium Chloride (Normal Saline) 250 mls @ 100 mls/hr IV ASDIRECTED [facility] Last Admin: 09/28/17 10:53 Dose: 100 mls/hr Ketorolac Tromethamine (Toradol) 30 mg IVPUSH Q6H [facility] Stop: 10/03/17 12:01 Last Admin: 09/30/17 11:54 Dose: 30 mg Morphine Sulfate (Morphine Knurling Machine Operator 30 Mg In 30 Ml) 0 mg IV ASDIRECTED PRN; Protocol PRN Reason: Pain (severe 7-10) Last Admin: 09/29/17 04:35 Dose: 30 mg Naloxone HCl (Narcan) 0.4 mg IVPUSH Q2M PRN PRN Reason: Respiratory Distress Pantoprazole Sodium (Protonix Iv) 40 mg IVPUSH DAILY [facility] Last Admin: 09/30/17 09:01 Dose: 40 mg Promethazine HCl (Phenergan) 25 mg IM Q6H PRN PRN Reason: Nausea Sodium Chloride (Saline Flush) 10 ml FLUSH ASDIRECTED PRN PRN Reason: Keep Vein Open Last Admin: 09/30/17 10:56 Dose: 10 ml Discontinued Medications Sodium Chloride (Normal Saline) 1,000 mls @ 125 mls/hr IV ASDIRECTED [facility] Last Admin: 09/27/17 06:15 Dose: 125 mls/hr Iopamidol (Isovue-370 (76%)) 100 ml IV . DIRECTED ONE Stop: 09/26/17 20:58 Last Admin: 09/26/17 21:45 Dose: 93 ml Ketorolac Tromethamine (Toradol) 30 mg IVPUSH ONETIME ONE Stop: 09/26/17 19:35 Last Admin: 09/26/17 19:41 Dose: 30 mg Ketorolac Tromethamine (Toradol) 30 mg IVPUSH Q6H [facility] Stop: 10/03/17 10:45 Last Admin: 09/28/17 12:16 Dose: 30 mg - Exam Wound/Incisions: Healing Well General: Alert, Oriented Lungs: Clear to Auscultation, Normal Respiratory Effort GI/Abdominal Exam: Soft, Non-Tender, Other (stoma looks good) - Problem List Review Problem List Initiated/Reviewed/Updated: Yes - My Orders Last 24 Hours: Active Orders 24 hr Category Date Time Status Full Liquid Diet [DIET] Diet 09/30/17 Dinner Active Medication Orders Hydrocodone Bitart/Acetaminophen ([place] 325-5 Mg) 1 tab PO Q4H PRN PRN Reason: Pain (mild 1-3) Diatrizoate Meglum/Diatrizoate Sod (Gastrografin 37%) 30 ml PO . DIRECTED [facility] Last Admin: 09/26/17 21:45 Dose: 30 ml Enoxaparin Sodium (Lovenox) 40 mg SUBCUT Q24H [facility] Last Admin: 09/30/17 09:01 Dose: 40 mg Admin: 09/29/17 09:33 Dose: 40 mg Admin: 09/28/17 09:00 Dose: 40 mg Piperacillin Sod/Tazobactam (Sod 3.375 gm/ Sodium Chloride) 50 mls @ 100 mls/ hr IV Q6H [facility] Stop: 10/01/17 22:31 Last Admin: 09/30/17 10:56 Dose: 100 mls/hr Admin: 09/30/17 04:43 Dose: 100 mls/hr Admin: 09/29/17 22:30 Dose: 100 mls/hr Admin: 09/29/17 17:10 Dose: 100 mls/hr Admin: 09/29/17 11:53 Dose: 100 mls/hr Admin: 09/29/17 04:37 Dose: 100 mls/hr Admin: 09/28/17 22:34 Dose: 100 mls/hr Admin: 09/28/17 16:21 Dose: 100 mls/hr Admin: 09/28/17 10:52 Dose: 100 mls/hr Admin: 09/28/17 03:51 Dose: 100 mls/hr Admin: 09/27/17 21:48 Dose: 100 mls/hr Admin: 09/27/17 16:43 Dose: 100 mls/hr Admin: 09/27/17 10:55 Dose: 100 mls/hr Admin: 09/27/17 05:00 Dose: 100 mls/hr Admin: 09/26/17 22:29 Dose: 100 mls/hr Lactated Ringer's (Ringers, Lactated) 1,000 mls @ 100 mls/hr IV ASDIRECTED [facility] Admin: 09/30/17 08:56 Dose: 100 mls/hr Infusion: 09/30/17 08:24 Dose: 100 mls/hr Admin: 09/29/17 22:24 Dose: 100 mls/hr Infusion: 09/29/17 20:59 Dose: 125 mls/hr Admin: 09/29/17 12:59 Dose: 125 mls/hr Infusion: 09/29/17 12:36 Dose: 125 mls/hr Admin: 09/29/17 04:36 Dose: 125 mls/hr Infusion: 09/29/17 04:36 Dose: 125 mls/hr Admin: 09/28/17 20:49 Dose: 125 mls/hr Infusion: 09/28/17 20:07 Dose: 125 mls/hr Admin: 09/28/17 12:07 Dose: 125 mls/hr Infusion: 09/28/17 11:49 Dose: 125 mls/hr Admin: 09/28/17 03:49 Dose: 125 mls/hr Infusion: 09/28/17 02:41 Dose: 125 mls/hr Admin: 09/27/17 18:41 Dose: 125 mls/hr Infusion: 09/27/17 18:41 Dose: 125 mls/hr Admin: 09/27/17 11:41 Dose: 125 mls/hr Infusion: 09/27/17 11:41 Dose: 125 mls/hr Admin: 09/27/17 09:10 Dose: 125 mls/hr Sodium Chloride (Normal Saline) 250 mls @ 100 mls/hr IV ASDIRECTED [facility] Last Admin: 09/28/17 10:53 Dose: 100 mls/hr Ketorolac Tromethamine (Toradol) 30 mg IVPUSH Q6H [facility] Stop: 10/03/17 12:01 Last Admin: 09/30/17 11:54 Dose: 30 mg Admin: 09/30/17 05:14 Dose: 30 mg Admin: 09/30/17 00:14 Dose: 30 mg Admin: 09/29/17 19:20 Dose: 30 mg Admin: 09/29/17 11:59 Dose: 30 mg Admin: 09/29/17 05:46 Dose: 30 mg Admin: 09/29/17 00:25 Dose: 30 mg Admin: 09/28/17 17:50 Dose: 30 mg Morphine Sulfate (Morphine Knurling Machine Operator 30 Mg In 30 Ml) 0 mg IV ASDIRECTED PRN; Protocol PRN Reason: Pain (severe 7-10) Last Admin: 09/29/17 04:35 Dose: 30 mg Admin: 09/27/17 23:35 Dose: 30 mg Admin: 09/27/17 02:58 Dose: 30 mg Naloxone HCl (Narcan) 0.4 mg IVPUSH Q2M PRN PRN Reason: Respiratory Distress Pantoprazole Sodium (Protonix Iv) 40 mg IVPUSH DAILY [facility] Last Admin: 09/30/17 09:01 Dose: 40 mg Admin: 09/29/17 09:34 Dose: 40 mg Admin: 09/28/17 08:04 Dose: 40 mg Admin: 09/27/17 08:49 Dose: 40 mg Promethazine HCl (Phenergan) 25 mg IM Q6H PRN PRN Reason: Nausea Sodium Chloride (Saline Flush) 10 ml FLUSH ASDIRECTED PRN PRN Reason: Keep Vein Open Last Admin: 09/30/17 10:56 Dose: 10 ml Admin: 09/30/17 09:05 Dose: 10 ml Admin: 09/30/17 05:15 Dose: 10 ml Admin: 09/29/17 22:37 Dose: 10 ml Admin: 09/28/17 16:59 Dose: 10 ml Admin: 09/28/17 12:16 Dose: 10 ml Admin: 09/28/17 10:47 Dose: 10 ml Admin: 09/28/17 08:04 Dose: 10 ml Admin: 09/28/17 03:53 Dose: 10 ml Admin: 09/27/17 21:51 Dose: 10 ml Admin: 09/27/17 11:42 Dose: 10 ml Admin: 09/27/17 10:55 Dose: 10 ml Admin: 09/27/17 02:25 Dose: 10 ml Admin: 09/26/17 19:43 Dose: 10 ml Admin: 09/26/17 19:42 Dose: 10 ml - Assessment Assessment (Free Text/Narrative):: Doing well Cultures noted - Plan Plan (Free Text/Narrative):: Advance diet Cont IV antibiotics until tomorrow
[2017-09-30] MEDS: Morphine PF 30 MG/30 ML PCA Vial IV PRN (18:44)
[2017-10-01] MEDS: Sodium Chloride 0.9% 10 ML Syringe FLUSH PRN ×4 (04:50→12:13)
[2017-10-01] MEDS: Piperacillin/Tazobactam 3.375 GM in Sodium Chloride 0.9% 50 ML IV SCH ×2 (04:51→11:37)
[2017-10-01] MEDS: Ketorolac 30 MG/ML SDV IVPUSH SCH ×2 (05:18→12:13)
[2017-10-01] MEDS: Enoxaparin 40 MG/0.4 ML Syringe SUBCUT SCH (08:23)
[2017-10-01] MEDS: Pantoprazole 40 MG Vial IVPUSH SCH (08:23)
[2017-10-01] MEDS: Acetaminophen/HYDROcodone 325-5 MG Tab PO PRN ×3 (12:12→22:08)
--- NOTE | 2017-10-01 13:22 | PCM.SURGPN ---
- General Info POD#: 4 Functional Status: Reports: Pain Controlled, Tolerating Diet, Ambulating - Review of Systems General: Reports: No Symptoms Gastrointestinal: Reports: No Symptoms - Patient Data Vitals - Most Recent: Last Vital Signs Temp 97.7 F 10/01/17 07:30 Pulse 61 10/01/17 07:30 Resp 20 10/01/17 07:30 BP 137/82 10/01/17 07:30 Pulse Ox 95 10/01/17 07:30 Weight - Most Recent: 89.953 kg I&O - Last 24 Hours: Intake & Output 09/30/17 10/01/17 10/01/17 22:59 06:59 14:59 Intake Total 893 792 445 Output Total 400 950 Balance 493 -158 445 Owen Results Last 24 Hrs: Microbiology 09/27/17 00:10 Gram Stain - Final Pelvic Abscess Routine Culture - Preliminary Med Orders - Current: Current Medications Hydrocodone Bitart/Acetaminophen ([place] 325-5 Mg) 1 tab PO Q4H PRN PRN Reason: Pain (mild 1-3) Last Admin: 10/01/17 12:12 Dose: 1 tab Diatrizoate Meglum/Diatrizoate Sod (Gastrografin 37%) 30 ml PO . DIRECTED [facility] Last Admin: 09/26/17 21:45 Dose: 30 ml Enoxaparin Sodium (Lovenox) 40 mg SUBCUT Q24H [facility] Last Admin: 10/01/17 08:23 Dose: 40 mg Sodium Chloride (Normal Saline) 250 mls @ 100 mls/hr IV ASDIRECTED [facility] Last Admin: 09/28/17 10:53 Dose: 100 mls/hr Promethazine HCl (Phenergan) 25 mg IM Q6H PRN PRN Reason: Nausea Sodium Chloride (Saline Flush) 10 ml FLUSH ASDIRECTED PRN PRN Reason: Keep Vein Open Last Admin: 10/01/17 12:13 Dose: 10 ml Discontinued Medications Piperacillin Sod/Tazobactam (Sod 3.375 gm/ Sodium Chloride) 50 mls @ 100 mls/ hr IV Q6H [facility] Stop: 10/01/17 22:31 Last Admin: 10/01/17 11:37 Dose: Not Given Sodium Chloride (Normal Saline) 1,000 mls @ 125 mls/hr IV ASDIRECTED [facility] Last Admin: 09/27/17 06:15 Dose: 125 mls/hr Lactated Ringer's (Ringers, Lactated) 1,000 mls @ 75 mls/hr IV ASDIRECTED [facility] Last Admin: 09/30/17 21:56 Dose: 100 mls/hr Iopamidol (Isovue-370 (76%)) 100 ml IV . DIRECTED ONE Stop: 09/26/17 20:58 Last Admin: 09/26/17 21:45 Dose: 93 ml Ketorolac Tromethamine (Toradol) 30 mg IVPUSH ONETIME ONE Stop: 09/26/17 19:35 Last Admin: 09/26/17 19:41 Dose: 30 mg Ketorolac Tromethamine (Toradol) 30 mg IVPUSH Q6H [facility] Stop: 10/03/17 10:45 Last Admin: 09/28/17 12:16 Dose: 30 mg Ketorolac Tromethamine (Toradol) 30 mg IVPUSH Q6H [facility] Stop: 10/03/17 12:01 Last Admin: 10/01/17 12:13 Dose: 30 mg Morphine Sulfate (Morphine Grain Operator 30 Mg In 30 Ml) 0 mg IV ASDIRECTED PRN; Protocol PRN Reason: Pain (severe 7-10) Last Admin: 09/30/17 18:44 Dose: 30 mg Naloxone HCl (Narcan) 0.4 mg IVPUSH Q2M PRN PRN Reason: Respiratory Distress Pantoprazole Sodium (Protonix Iv) 40 mg IVPUSH DAILY [facility] Last Admin: 10/01/17 08:23 Dose: 40 mg - Exam Wound/Incisions: Healing Well GI/Abdominal Exam: Soft, Non-Tender - Problem List Review Problem List Initiated/Reviewed/Updated: Yes - My Orders Last 24 Hours: Active Orders 24 hr Category Date Time Status Adult Diet [DIET] Diet 09/30/17 Dinner Active Medication Orders Hydrocodone Bitart/Acetaminophen ([place] 325-5 Mg) 1 tab PO Q4H PRN PRN Reason: Pain (mild 1-3) Last Admin: 10/01/17 12:12 Dose: 1 tab Diatrizoate Meglum/Diatrizoate Sod (Gastrografin 37%) 30 ml PO . DIRECTED [facility] Last Admin: 09/26/17 21:45 Dose: 30 ml Enoxaparin Sodium (Lovenox) 40 mg SUBCUT Q24H [facility] Last Admin: 10/01/17 08:23 Dose: 40 mg Admin: 09/30/17 09:01 Dose: 40 mg Admin: 09/29/17 09:33 Dose: 40 mg Admin: 09/28/17 09:00 Dose: 40 mg Sodium Chloride (Normal Saline) 250 mls @ 100 mls/hr IV ASDIRECTED [facility] Last Admin: 09/28/17 10:53 Dose: 100 mls/hr Promethazine HCl (Phenergan) 25 mg IM Q6H PRN PRN Reason: Nausea Sodium Chloride (Saline Flush) 10 ml FLUSH ASDIRECTED PRN PRN Reason: Keep Vein Open Last Admin: 10/01/17 12:13 Dose: 10 ml Admin: 10/01/17 08:23 Dose: 10 ml Admin: 10/01/17 05:19 Dose: 10 ml Admin: 10/01/17 04:50 Dose: 10 ml Admin: 09/30/17 23:00 Dose: 10 ml Admin: 09/30/17 22:27 Dose: 10 ml Admin: 09/30/17 10:56 Dose: 10 ml Admin: 09/30/17 09:05 Dose: 10 ml Admin: 09/30/17 05:15 Dose: 10 ml Admin: 09/29/17 22:37 Dose: 10 ml Admin: 09/28/17 16:59 Dose: 10 ml Admin: 09/28/17 12:16 Dose: 10 ml Admin: 09/28/17 10:47 Dose: 10 ml Admin: 09/28/17 08:04 Dose: 10 ml Admin: 09/28/17 03:53 Dose: 10 ml Admin: 09/27/17 21:51 Dose: 10 ml Admin: 09/27/17 11:42 Dose: 10 ml Admin: 09/27/17 10:55 Dose: 10 ml Admin: 09/27/17 02:25 Dose: 10 ml Admin: 09/26/17 19:43 Dose: 10 ml Admin: 09/26/17 19:42 Dose: 10 ml - Assessment Assessment (Free Text/Narrative):: Doing well D/C Antibiotics Adv to Reg diet - Plan Plan (Free Text/Narrative):: Home tomorrow
[2017-10-02] MEDS: Acetaminophen/HYDROcodone 325-5 MG Tab PO PRN ×3 (03:46→13:15)
[2017-10-02] MEDS: Enoxaparin 40 MG/0.4 ML Syringe SUBCUT SCH (09:14)
--- NOTE | 2017-10-02 12:32 | PCM.SURGPN ---
- General Info Date of Service: 10/02/17 POD#: 5 Functional Status: Reports: Pain Controlled, Tolerating Diet, Ambulating - Review of Systems General: Reports: No Symptoms Gastrointestinal: Reports: No Symptoms - Patient Data Vitals - Most Recent: Last Vital Signs Temp 98.6 F 10/02/17 08:45 Pulse 76 10/02/17 08:45 Resp 20 10/02/17 08:45 BP 126/72 10/02/17 08:45 Pulse Ox 94 L 10/02/17 08:45 Weight - Most Recent: 89.953 kg I&O - Last 24 Hours: Intake & Output 10/01/17 10/02/17 10/02/17 22:59 06:59 14:59 Output Total 50 Balance -50 Med Orders - Current: Current Medications Hydrocodone Bitart/Acetaminophen ([place] 325-5 Mg) 1 tab PO Q4H PRN PRN Reason: Pain (mild 1-3) Last Admin: 10/02/17 09:12 Dose: 1 tab Diatrizoate Meglum/Diatrizoate Sod (Gastrografin 37%) 30 ml PO . DIRECTED [facility] Last Admin: 09/26/17 21:45 Dose: 30 ml Enoxaparin Sodium (Lovenox) 40 mg SUBCUT Q24H [facility] Last Admin: 10/02/17 09:14 Dose: 40 mg Promethazine HCl (Phenergan) 25 mg IM Q6H PRN PRN Reason: Nausea Sodium Chloride (Saline Flush) 10 ml FLUSH ASDIRECTED PRN PRN Reason: Keep Vein Open Last Admin: 10/01/17 12:13 Dose: 10 ml Discontinued Medications Piperacillin Sod/Tazobactam (Sod 3.375 gm/ Sodium Chloride) 50 mls @ 100 mls/ hr IV Q6H [facility] Stop: 10/01/17 22:31 Last Admin: 10/01/17 11:37 Dose: Not Given Sodium Chloride (Normal Saline) 1,000 mls @ 125 mls/hr IV ASDIRECTED [facility] Last Admin: 09/27/17 06:15 Dose: 125 mls/hr Lactated Ringer's (Ringers, Lactated) 1,000 mls @ 75 mls/hr IV ASDIRECTED [facility] Last Admin: 09/30/17 21:56 Dose: 100 mls/hr Sodium Chloride (Normal Saline) 250 mls @ 100 mls/hr IV ASDIRECTED [facility] Last Admin: 09/28/17 10:53 Dose: 100 mls/hr Iopamidol (Isovue-370 (76%)) 100 ml IV . DIRECTED ONE Stop: 09/26/17 20:58 Last Admin: 09/26/17 21:45 Dose: 93 ml Ketorolac Tromethamine (Toradol) 30 mg IVPUSH ONETIME ONE Stop: 09/26/17 19:35 Last Admin: 09/26/17 19:41 Dose: 30 mg Ketorolac Tromethamine (Toradol) 30 mg IVPUSH Q6H [facility] Stop: 10/03/17 10:45 Last Admin: 09/28/17 12:16 Dose: 30 mg Ketorolac Tromethamine (Toradol) 30 mg IVPUSH Q6H [facility] Stop: 10/03/17 12:01 Last Admin: 10/01/17 12:13 Dose: 30 mg Morphine Sulfate (Morphine Transportation Consultant 30 Mg In 30 Ml) 0 mg IV ASDIRECTED PRN; Protocol PRN Reason: Pain (severe 7-10) Last Admin: 09/30/17 18:44 Dose: 30 mg Naloxone HCl (Narcan) 0.4 mg IVPUSH Q2M PRN PRN Reason: Respiratory Distress Pantoprazole Sodium (Protonix Iv) 40 mg IVPUSH DAILY [facility] Last Admin: 10/01/17 08:23 Dose: 40 mg - Exam Wound/Incisions: Healing Well General: Alert, Oriented GI/Abdominal Exam: Soft, Non-Tender, Other (ostomy functions well) - Problem List Review Problem List Initiated/Reviewed/Updated: Yes - My Orders Last 24 Hours: Medication Orders Hydrocodone Bitart/Acetaminophen ([place] 325-5 Mg) 1 tab PO Q4H PRN PRN Reason: Pain (mild 1-3) Last Admin: 10/02/17 09:12 Dose: 1 tab Admin: 10/02/17 03:46 Dose: 1 tab Admin: 10/01/17 22:08 Dose: 1 tab Admin: 10/01/17 18:32 Dose: 1 tab Admin: 10/01/17 12:12 Dose: 1 tab Diatrizoate Meglum/Diatrizoate Sod (Gastrografin 37%) 30 ml PO . DIRECTED [facility] Last Admin: 09/26/17 21:45 Dose: 30 ml Enoxaparin Sodium (Lovenox) 40 mg SUBCUT Q24H [facility] Last Admin: 10/02/17 09:14 Dose: 40 mg Admin: 10/01/17 08:23 Dose: 40 mg Admin: 09/30/17 09:01 Dose: 40 mg Admin: 09/29/17 09:33 Dose: 40 mg Admin: 09/28/17 09:00 Dose: 40 mg Promethazine HCl (Phenergan) 25 mg IM Q6H PRN PRN Reason: Nausea Sodium Chloride (Saline Flush) 10 ml FLUSH ASDIRECTED PRN PRN Reason: Keep Vein Open Last Admin: 10/01/17 12:13 Dose: 10 ml Admin: 10/01/17 08:23 Dose: 10 ml Admin: 10/01/17 05:19 Dose: 10 ml Admin: 10/01/17 04:50 Dose: 10 ml Admin: 09/30/17 23:00 Dose: 10 ml Admin: 09/30/17 22:27 Dose: 10 ml Admin: 09/30/17 10:56 Dose: 10 ml Admin: 09/30/17 09:05 Dose: 10 ml Admin: 09/30/17 05:15 Dose: 10 ml Admin: 09/29/17 22:37 Dose: 10 ml Admin: 09/28/17 16:59 Dose: 10 ml Admin: 09/28/17 12:16 Dose: 10 ml Admin: 09/28/17 10:47 Dose: 10 ml Admin: 09/28/17 08:04 Dose: 10 ml Admin: 09/28/17 03:53 Dose: 10 ml Admin: 09/27/17 21:51 Dose: 10 ml Admin: 09/27/17 11:42 Dose: 10 ml Admin: 09/27/17 10:55 Dose: 10 ml Admin: 09/27/17 02:25 Dose: 10 ml Admin: 09/26/17 19:43 Dose: 10 ml Admin: 09/26/17 19:42 Dose: 10 ml - Assessment Assessment (Free Text/Narrative):: Doing well - Plan Plan (Free Text/Narrative):: Discharge to home F/u next Fri for staple removal
--- NOTE | 2017-10-02 12:37 | PCM.DCSUM1 ---
Discharge Summary - Hospital Course Brief History: Admitted from surgery after presenting to the ER withfew day history of abd pain and CT scan showing perforated diverticulitis - Discharge Data Discharge Date: 10/02/17 Discharge Disposition: Home, W Home Health Agency 06 Condition: Good - Patient Summary/Data Operative Procedure(s) Performed: Sigmoid Colectomy / Colostomy Complications: none Recommended Follow-up Testing/Procedures: F/u with Dr Stevan West 10/07 for staple removal Hospital Course: Underwent to above surgery and post op did well. Bowel function returned on POD #2. Was started on liquid s and advanced to regular. Wound is healing well. - Patient Instructions Diet: Usual Diet as Tolerated Activity: No Lifting Over 20 Pounds (for 1 month), No Strenuous Activities (for 1 week) Driving: Do Not Drive (for a few days) Showering/Bathing: May Shower Wound/Incision Care: Keep Operative Site/Wound Site Clean and Dry - Discharge Plan Home Medications: Home Meds NK [No Known Home Meds] 09/26/17 [History] Patient Handouts: OUTREACH DIRECTOR Pump Information, Colostomy, Adult, Care After, Open Colectomy, Care After, Fall Prevention in Hospitals, Adult, Venous Thromboembolism Prevention Forms: ED Department Discharge Referrals: Fermin Santana MD [Primary Care Provider] - - Discharge Summary/Plan Comment DC Time >30 min.: No - Patient Data Vitals - Most Recent: Last Vital Signs Temp 98.6 F 10/02/17 08:45 Pulse 76 10/02/17 08:45 Resp 20 10/02/17 08:45 BP 126/72 10/02/17 08:45 Pulse Ox 94 L 10/02/17 08:45 Weight - Most Recent: 89.953 kg I&O - Last 24 hours: Intake & Output 10/01/17 10/02/17 10/02/17 22:59 06:59 14:59 Output Total 50 Balance -50 Med Orders - Current: Current Medications Hydrocodone Bitart/Acetaminophen ([place] 325-5 Mg) 1 tab PO Q4H PRN PRN Reason: Pain (mild 1-3) Last Admin: 10/02/17 09:12 Dose: 1 tab Diatrizoate Meglum/Diatrizoate Sod (Gastrografin 37%) 30 ml PO . DIRECTED [facility] Last Admin: 09/26/17 21:45 Dose: 30 ml Enoxaparin Sodium (Lovenox) 40 mg SUBCUT Q24H [facility] Last Admin: 10/02/17 09:14 Dose: 40 mg Promethazine HCl (Phenergan) 25 mg IM Q6H PRN PRN Reason: Nausea Sodium Chloride (Saline Flush) 10 ml FLUSH ASDIRECTED PRN PRN Reason: Keep Vein Open Last Admin: 10/01/17 12:13 Dose: 10 ml Discontinued Medications Piperacillin Sod/Tazobactam (Sod 3.375 gm/ Sodium Chloride) 50 mls @ 100 mls/ hr IV Q6H [facility] Stop: 10/01/17 22:31 Last Admin: 10/01/17 11:37 Dose: Not Given Sodium Chloride (Normal Saline) 1,000 mls @ 125 mls/hr IV ASDIRECTED [facility] Last Admin: 09/27/17 06:15 Dose: 125 mls/hr Lactated Ringer's (Ringers, Lactated) 1,000 mls @ 75 mls/hr IV ASDIRECTED [facility] Last Admin: 09/30/17 21:56 Dose: 100 mls/hr Sodium Chloride (Normal Saline) 250 mls @ 100 mls/hr IV ASDIRECTED [facility] Last Admin: 09/28/17 10:53 Dose: 100 mls/hr Iopamidol (Isovue-370 (76%)) 100 ml IV . DIRECTED ONE Stop: 09/26/17 20:58 Last Admin: 09/26/17 21:45 Dose: 93 ml Ketorolac Tromethamine (Toradol) 30 mg IVPUSH ONETIME ONE Stop: 09/26/17 19:35 Last Admin: 09/26/17 19:41 Dose: 30 mg Ketorolac Tromethamine (Toradol) 30 mg IVPUSH Q6H [facility] Stop: 10/03/17 10:45 Last Admin: 09/28/17 12:16 Dose: 30 mg Ketorolac Tromethamine (Toradol) 30 mg IVPUSH Q6H [facility] Stop: 10/03/17 12:01 Last Admin: 10/01/17 12:13 Dose: 30 mg Morphine Sulfate (Morphine Refractory Technician 30 Mg In 30 Ml) 0 mg IV ASDIRECTED PRN; Protocol PRN Reason: Pain (severe 7-10) Last Admin: 09/30/17 18:44 Dose: 30 mg Naloxone HCl (Narcan) 0.4 mg IVPUSH Q2M PRN PRN Reason: Respiratory Distress Pantoprazole Sodium (Protonix Iv) 40 mg IVPUSH DAILY [facility] Last Admin: 10/01/17 08:23 Dose: 40 mg
== END 2017-10-02 13:20 | disposition home health service (06) | DRG 330 ==
LOC: FB.ED 19:23 → FB.SDS 22:24 → FB.MS 09-27 01:19
PROVIDERS: ADMIT Surgery; ATTEND Surgery
PROC: 0DBN0ZZ Excision of Sigmoid Colon, Open Approach (ICD-10-PCS; principal; 2017-09-26)
PROC: 0D1N0Z4 Bypass Sigmoid Colon to Cutaneous, Open Approach (ICD-10-PCS; 2017-09-26)
DX: K57.20 Diverticulitis of large intestine with perforation and abscess without bleeding (principal)
CPT/HCPCS: 36415; 74177; 80048; 80076; 81001; 82150; 85025; 85027; 87070; 87075; 87205; 88307; 94150; 96374; 96375; 99285; A9270-GY; C9113; J1650; J1885; J2274; J2543; J7040; J7050; J7120; Q9967

== ENCOUNTER 2017-11-22 03:38 | Inpatient (IN) | payer MEDICARE, OTHER ==
[2017-11-22] MEDS ORDERED: Sodium Chloride 0.9% 1,000 ML IV ONE (04:08)
[2017-11-22] MEDS ORDERED: Ketorolac 30 MG/ML SDV IVPUSH ONE (04:08)
[2017-11-22] MEDS ORDERED: Ondansetron 4 MG/2 ML SDV IVPUSH ONE (04:15)
--- NOTE | 2017-11-22 04:15 | EDM.PDOC ---
ED HPI GENERAL MEDICAL PROBLEM - General Chief Complaint: Abdominal Pain Stated Complaint: ABD PAIN Time Seen by Provider: 11/22/17 03:55 Source of Information: Reports: Patient, Family History Limitations: Reports: No Limitations - History of Present Illness INITIAL COMMENTS - FREE TEXT/NARRATIVE: c/o lower abd pain x 4h onset pain 11:30 PM, ate usually supper, high in fatty food, felt okay in evening V x 1 at home, no N now, pain across lower abd seems uncomfortable, rolling on bed, denied tender on exam yet was guarding no f/c/d here with 2m ago with colectomy for perf of sigmoid diverticuli Lower abdomen Pain Score (Numeric/FACES): 5 - Related Data Allergies Allergy/AdvReac Type Severity Reaction Status Date / Time No Known Allergies Allergy Verified 11/22/17 03:51 Home Meds: Home Meds NK [No Known Home Meds] 09/26/17 [History] Past Medical History Gastrointestinal History: Reports: Diverticulosis - Infectious Disease History Infectious Disease History: Reports: Chicken Pox, Measles, Mumps - Past Surgical History HEENT Surgical History: Reports: Adenoidectomy, Tonsillectomy GI Surgical History: Reports: Colonoscopy, Colostomy Social & Family History - Family History Family Medical History: Noncontributory - Tobacco Use Smoking Status *Q: Never Smoker - Caffeine Use Caffeine Use: Reports: Coffee, Soda - Recreational Drug Use Recreational Drug Use: No ED ROS GENERAL - Review of Systems Review Of Systems: See Below Constitutional: Reports: No Symptoms HEENT: Reports: No Symptoms Respiratory: Reports: No Symptoms Cardiovascular: Reports: No Symptoms Endocrine: Reports: No Symptoms GI/Abdominal: Reports: Abdominal Pain, Nausea, Vomiting : Reports: No Symptoms Musculoskeletal: Reports: No Symptoms Skin: Reports: No Symptoms Neurological: Reports: No Symptoms Psychiatric: Reports: No Symptoms Hematologic/Lymphatic: Reports: No Symptoms Immunologic: Reports: No Symptoms ED EXAM, GI/ABD - Physical Exam Exam: See Below Exam Limited By: No Limitations General Appearance: Alert, WD/WN, Mild Distress Ears: Normal External Exam, Normal Canal, Hearing Grossly Normal Nose: Normal Inspection, Normal Mucosa, No Blood Throat/Mouth: Normal Inspection, Normal Lips, Normal Voice, No Airway Compromise Head: Atraumatic, Normocephalic Neck: Normal Inspection, Supple, Non-Tender, Full Range of Motion Respiratory/Chest: No Respiratory Distress, Lungs Clear, Normal Breath Sounds, No Accessory Muscle Use, Chest Non-Tender Cardiovascular: Regular Rate, Rhythm, No Edema, No Gallop, No Rub, Other (2/6 CR at LSB) GI/Abdominal Exam: Normal Bowel Sounds, Other (colostomy at LLQ, midline incision healing well, ND, good BS x 4, pt had tense abd muscles regardless of where he was palpated, denies tender altho not believable, would not relax abd muscles, no CVAT b/l) Back Exam: Normal Inspection, Full Range of Motion. No: CVA Tenderness (R), CVA Tenderness (L) Extremities: Normal Inspection, Normal Range of Motion, Non-Tender Neurological: Alert, Oriented, CN II-XII Intact, Normal Cognition, No Motor/ Sensory Deficits Psychiatric: Normal Affect, Normal Mood Skin Exam: Warm, Dry, Intact, Normal Color, No Rash Lymphatic: No Adenopathy Course - Vital Signs Last Recorded V/S: Last Vital Signs Temp 36.5 C 11/22/17 05:22 Pulse 73 11/22/17 03:42 Resp 18 11/22/17 05:22 BP 138/68 11/22/17 05:22 Pulse Ox 99 11/22/17 05:22 - Orders/Labs/Meds Orders: Active Orders 24 hr Category Date Time Status Abdomen 2V AP Flat Upright [CR] Stat Exams 11/22/17 03:58 Taken UA W/MICROSCOPIC [URIN] Stat Lab 11/22/17 03:42 Ordered Labs: Laboratory Tests 11/22/17 11/22/17 11/22/17 Range/Units 03:42 04:12 04:12 WBC 9.7 (4.5-12.0) X10-3/uL RBC 4.89 (4.30-5.75) x10(6)uL Hgb 15.4 (11.5-15.5) g/dL Hct 45.6 (30.0-51.3) % MCV 93.3 (80-96) fL MCH 31.6 (27.7-33.6) pg MCHC 33.8 (32.2-35.4) g/dL RDW 13.1 (11.5-15.5) % Plt Count 199 (125-369) X10(3)uL MPV 8.4 (7.4-10.4) fL Neut % (Auto) 81.4 (46-82) % Lymph % (Auto) 10.3 L (13-37) % [place] % (Auto) 6.7 (4-12) % Eos % (Auto) 1 (1.0-5.0) % Baso % (Auto) 1 (0-2) % Neut # (Auto) 7.8 (1.6-8.3) # Lymph # (Auto) 1.0 (0.6-5.0) # [place] # (Auto) 0.7 (0.0-1.3) # Eos # (Auto) 0.1 (0.0-0.8) # Baso # (Auto) 0.1 (0.0-0.2) # Sodium 142 (135-145) mmol/L Potassium 3.6 (3.5-5.3) mmol/L Chloride 105 (100-110) mmol/L Carbon Dioxide 28 (21-32) mmol/L BUN 16 (7-18) mg/dL Creatinine 1.1 (0.70-1.30) mg/dL Est Cr Clr Drug Dosing 64.77 mL/min Estimated GFR (MDRD) > 60 (>60) BUN/Creatinine Ratio 14.5 (9-20) Glucose 112 (80-116) mg/dL Calcium 9.3 (8.6-10.2) mg/dL Total Bilirubin 0.4 (0.1-1.3) mg/dL AST 24 D (5-25) IU/L ALT 32 D (12-36) U/L Alkaline Phosphatase 59 (56-112) IU/L C-Reactive Protein (0.5-0.9) mg/dL Total Protein 7.2 (6.0-8.0) g/dL Albumin 3.9 (3.2-4.6) g/dL Globulin 3.3 g/dL Albumin/Globulin Ratio 1.2 Urine Color Yellow (YELLOW) Urine Appearance Clear (CLEAR) Urine pH 8.0 H (5.0-6.5) Ur Specific [place] 1.015 (1.010-1.025) Urine Protein Negative (NEGATIVE) mg/dL Urine Glucose (UA) Normal (NEGATIVE) mg/dL Urine Ketones Negative (NEGATIVE) mg/dL Urine Occult Blood Negative (NEGATIVE) Urine Nitrite Negative (NEGATIVE) Urine Bilirubin Negative (NEGATIVE) Urine Urobilinogen Normal (NEGATIVE) mg/dL Ur Leukocyte Esterase Negative (NEGATIVE) Urine RBC 0-5 (0) Urine WBC 0-5 (0) Ur Squamous Epith Cells Rare (NS,R,O) Urine Bacteria Rare H (NS) 11/22/17 Range/Units 04:12 WBC (4.5-12.0) X10-3/uL RBC (4.30-5.75) x10(6)uL Hgb (11.5-15.5) g/dL Hct (30.0-51.3) % MCV (80-96) fL MCH (27.7-33.6) pg MCHC (32.2-35.4) g/dL RDW (11.5-15.5) % Plt Count (125-369) X10(3)uL MPV (7.4-10.4) fL Neut % (Auto) (46-82) % Lymph % (Auto) (13-37) % [place] % (Auto) (4-12) % Eos % (Auto) (1.0-5.0) % Baso % (Auto) (0-2) % Neut # (Auto) (1.6-8.3) # Lymph # (Auto) (0.6-5.0) # [place] # (Auto) (0.0-1.3) # Eos # (Auto) (0.0-0.8) # Baso # (Auto) (0.0-0.2) # Sodium (135-145) mmol/L Potassium (3.5-5.3) mmol/L Chloride (100-110) mmol/L Carbon Dioxide (21-32) mmol/L BUN (7-18) mg/dL Creatinine (0.70-1.30) mg/dL Est Cr Clr Drug Dosing mL/min Estimated GFR (MDRD) (>60) BUN/Creatinine Ratio (9-20) Glucose (80-116) mg/dL Calcium (8.6-10.2) mg/dL Total Bilirubin (0.1-1.3) mg/dL AST (5-25) IU/L ALT (12-36) U/L Alkaline Phosphatase (56-112) IU/L C-Reactive Protein < 0.2 L (0.5-0.9) mg/dL Total Protein (6.0-8.0) g/dL Albumin (3.2-4.6) g/dL Globulin g/dL Albumin/Globulin Ratio Urine Color (YELLOW) Urine Appearance (CLEAR) Urine pH (5.0-6.5) Ur Specific [place] (1.010-1.025) Urine Protein (NEGATIVE) mg/dL Urine Glucose (UA) (NEGATIVE) mg/dL Urine Ketones (NEGATIVE) mg/dL Urine Occult Blood (NEGATIVE) Urine Nitrite (NEGATIVE) Urine Bilirubin (NEGATIVE) Urine Urobilinogen (NEGATIVE) mg/dL Ur Leukocyte Esterase (NEGATIVE) Urine RBC (0) Urine WBC (0) Ur Squamous Epith Cells (NS,R,O) Urine Bacteria (NS) Meds: Medications Discontinued Medications Generic Name Dose Route Start Last Admin Trade Name Freq PRN Reason Stop Dose Admin Sodium Chloride 1,000 mls @ 999 mls/hr 11/22/17 04:08 11/22/17 05:04 Normal Saline IV 11/22/17 05:08 999 mls/hr .BOLUS ONE Administration Ketorolac Tromethamine 30 mg 11/22/17 04:08 11/22/17 05:04 Toradol IVPUSH 11/22/17 04:09 30 mg ONETIME ONE Administration Ondansetron HCl 4 mg 11/22/17 04:15 11/22/17 05:06 Zofran IVPUSH 11/22/17 04:16 4 mg ONETIME ONE Administration - Re-Assessments/Exams Free Text/Narrative Re-Assessment/Exam: 11/22/17 05:42 CBC, CMP, CRP and u/a all neg KUB flat and upright with SBO with AFL, no distention Departure - Departure Time of Disposition: 05:44 Disposition: Admitted As Inpatient 68 Condition: Good Clinical Impression: Small bowel obstruction - Discharge Information Referrals: Fermin Santana MD [Primary Care Provider] - Forms: ED Department Discharge - My Orders Last 24 Hours: My Active Orders 11/22/17 03:42 UA W/MICROSCOPIC [URIN] Stat 11/22/17 03:58 Abdomen 2V AP Flat Upright [CR] Stat - Assessment/Plan Last 24 Hours: My Active Orders 11/22/17 03:42 UA W/MICROSCOPIC [URIN] Stat 11/22/17 03:58 Abdomen 2V AP Flat Upright [CR] Stat
[2017-11-22] MEDS ORDERED: Morphine 2 MG/ML Syringe IVPUSH PRN (05:54)
[2017-11-22] MEDS ORDERED: Ondansetron 4 MG/2 ML SDV IV PRN (05:54)
[2017-11-22] MEDS ORDERED: Enoxaparin 40 MG/0.4 ML Syringe SUBCUT SCH (06:00)
[2017-11-22] MEDS ORDERED: Ketorolac 30 MG/ML SDV IM SCH (06:00)
[2017-11-22] MEDS ORDERED: Sodium Chloride 0.9% 1,000 ML IV SCH (06:00)
--- NOTE | 2017-11-22 09:41 | PCM.PN ---
- General Info Date of Service: 11/22/17 Admission Dx/Problem (Free Text): Developed severe abd pain, nausea, vomiting and heartburn last pm. AXR inER show PSBO. Feels back to normal this am after having large BM. Functional Status: Reports: Pain Controlled, Ambulating - Review of Systems General: Reports: No Symptoms Pulmonary: Reports: No Symptoms Cardiovascular: Reports: No Symptoms Gastrointestinal: Reports: No Symptoms. Denies: Abdominal Pain, Nausea, Vomiting Genitourinary: Reports: No Symptoms - Patient Data Vitals - Most Recent: Last Vital Signs Temp 98.2 F 11/22/17 07:40 Pulse 85 11/22/17 07:40 Resp 20 11/22/17 07:40 BP 136/80 11/22/17 07:40 Pulse Ox 95 11/22/17 07:40 Weight - Most Recent: 83.325 kg I&O - Last 24 Hours: Intake & Output 11/21/17 11/22/17 11/22/17 22:59 06:59 14:59 Intake Total 0 Output Total 0 Balance 0 Lab Results Last 24 Hours: Laboratory Results - last 24 hr 11/22/17 11/22/17 11/22/17 Range/Units 03:42 04:12 04:12 WBC 9.7 (4.5-12.0) X10-3/uL RBC 4.89 (4.30-5.75) x10(6)uL Hgb 15.4 (11.5-15.5) g/dL Hct 45.6 (30.0-51.3) % MCV 93.3 (80-96) fL MCH 31.6 (27.7-33.6) pg MCHC 33.8 (32.2-35.4) g/dL RDW 13.1 (11.5-15.5) % Plt Count 199 (125-369) X10(3)uL MPV 8.4 (7.4-10.4) fL Neut % (Auto) 81.4 (46-82) % Lymph % (Auto) 10.3 L (13-37) % [place] % (Auto) 6.7 (4-12) % Eos % (Auto) 1 (1.0-5.0) % Baso % (Auto) 1 (0-2) % Neut # (Auto) 7.8 (1.6-8.3) # Lymph # (Auto) 1.0 (0.6-5.0) # [place] # (Auto) 0.7 (0.0-1.3) # Eos # (Auto) 0.1 (0.0-0.8) # Baso # (Auto) 0.1 (0.0-0.2) # Sodium 142 (135-145) mmol/L Potassium 3.6 (3.5-5.3) mmol/L Chloride 105 (100-110) mmol/L Carbon Dioxide 28 (21-32) mmol/L BUN 16 (7-18) mg/dL Creatinine 1.1 (0.70-1.30) mg/dL Est Cr Clr Drug Dosing 64.77 mL/min Estimated GFR (MDRD) > 60 (>60) BUN/Creatinine Ratio 14.5 (9-20) Glucose 112 (80-116) mg/dL Calcium 9.3 (8.6-10.2) mg/dL Total Bilirubin 0.4 (0.1-1.3) mg/dL AST 24 D (5-25) IU/L ALT 32 D (12-36) U/L Alkaline Phosphatase 59 (56-112) IU/L C-Reactive Protein (0.5-0.9) mg/dL Total Protein 7.2 (6.0-8.0) g/dL Albumin 3.9 (3.2-4.6) g/dL Globulin 3.3 g/dL Albumin/Globulin Ratio 1.2 Urine Color Yellow (YELLOW) Urine Appearance Clear (CLEAR) Urine pH 8.0 H (5.0-6.5) Ur Specific [place] 1.015 (1.010-1.025) Urine Protein Negative (NEGATIVE) mg/dL Urine Glucose (UA) Normal (NEGATIVE) mg/dL Urine Ketones Negative (NEGATIVE) mg/dL Urine Occult Blood Negative (NEGATIVE) Urine Nitrite Negative (NEGATIVE) Urine Bilirubin Negative (NEGATIVE) Urine Urobilinogen Normal (NEGATIVE) mg/dL Ur Leukocyte Esterase Negative (NEGATIVE) Urine RBC 0-5 (0) Urine WBC 0-5 (0) Ur Squamous Epith Cells Rare (NS,R,O) Urine Bacteria Rare H (NS) 11/22/ Range/Units 04:12 WBC (4.5-12.0) X10-3/uL RBC (4.30-5.75) x10(6)uL Hgb (11.5-15.5) g/dL Hct (30.0-51.3) % MCV (80-96) fL MCH (27.7-33.6) pg MCHC (32.2-35.4) g/dL RDW (11.5-15.5) % Plt Count (125-369) X10(3)uL MPV (7.4-10.4) fL Neut % (Auto) (46-82) % Lymph % (Auto) (13-37) % [place] % (Auto) (4-12) % Eos % (Auto) (1.0-5.0) % Baso % (Auto) (0-2) % Neut # (Auto) (1.6-8.3) # Lymph # (Auto) (0.6-5.0) # [place] # (Auto) (0.0-1.3) # Eos # (Auto) (0.0-0.8) # Baso # (Auto) (0.0-0.2) # Sodium (135-145) mmol/L Potassium (3.5-5.3) mmol/L Chloride (100-110) mmol/L Carbon Dioxide (21-32) mmol/L BUN (7-18) mg/dL Creatinine (0.70-1.30) mg/dL Est Cr Clr Drug Dosing mL/min Estimated GFR (MDRD) (>60) BUN/Creatinine Ratio (9-20) Glucose (80-116) mg/dL Calcium (8.6-10.2) mg/dL Total Bilirubin (0.1-1.3) mg/dL AST (5-25) IU/L ALT (12-36) U/L Alkaline Phosphatase (56-112) IU/L C-Reactive Protein < 0.2 L (0.5-0.9) mg/dL Total Protein (6.0-8.0) g/dL Albumin (3.2-4.6) g/dL Globulin g/dL Albumin/Globulin Ratio Urine Color (YELLOW) Urine Appearance (CLEAR) Urine pH (5.0-6.5) Ur Specific [place] (1.010-1.025) Urine Protein (NEGATIVE) mg/dL Urine Glucose (UA) (NEGATIVE) mg/dL Urine Ketones (NEGATIVE) mg/dL Urine Occult Blood (NEGATIVE) Urine Nitrite (NEGATIVE) Urine Bilirubin (NEGATIVE) Urine Urobilinogen (NEGATIVE) mg/dL Ur Leukocyte Esterase (NEGATIVE) Urine RBC (0) Urine WBC (0) Ur Squamous Epith Cells (NS,R,O) Urine Bacteria (NS) Med Orders - Current: Current Medications Enoxaparin Sodium (Lovenox) 40 mg SUBCUT Q24H [facility] Last Admin: 11/22/17 06:21 Dose: 40 mg Sodium Chloride (Normal Saline) 1,000 mls @ 125 mls/hr IV ASDIRECTED [facility] Last Admin: 11/22/17 06:18 Dose: 125 mls/hr Ketorolac Tromethamine (Toradol) 30 mg IM Q6H [facility] Stop: 11/23/17 06:00 Last Admin: 11/22/17 06:19 Dose: Not Given Morphine Sulfate (Morphine) 2 mg IVPUSH Q2H PRN PRN Reason: Pain (severe 7-10) Ondansetron HCl (Zofran) 4 mg IV Q4H PRN PRN Reason: Nausea/Vomiting Discontinued Medications Sodium Chloride (Normal Saline) 1,000 mls @ 999 mls/hr IV .BOLUS ONE Stop: 11/22/17 05:08 Last Admin: 11/22/17 05:04 Dose: 999 mls/hr Ketorolac Tromethamine (Toradol) 30 mg IVPUSH ONETIME ONE Stop: 11/22/17 04:09 Last Admin: 11/22/17 05:04 Dose: 30 mg Ondansetron HCl (Zofran) 4 mg IVPUSH ONETIME ONE Stop: 11/22/17 04:16 Last Admin: 11/22/17 05:06 Dose: 4 mg - Exam General: Alert, Oriented GI/Abdominal Exam: Soft, Non-Tender, No Distention. No: Distended, Hernia - Problem List Review Problem List Initiated/Reviewed/Updated: Yes - My Orders Last 24 Hours: My Active Orders 11/22/17 Lunch Soft Diet [DIET] - Assessment Assessment:: Partial SBO resolved - Plan Plan:: Will start po and discharge after lunch if tolerates
[2017-11-22] MEDS ORDERED: Ketorolac 15 MG/ML SDV IVPUSH PRN (10:46)
--- NOTE | 2017-11-22 12:13 | CR ---
INDICATION: Abdominal pain. ABDOMEN: Four images of the abdomen in supine and upright projections revealed multiple air fluid levels in jejunum, raising question of a localized paralytic ileus or possibly a mid to distal small bowel obstruction, possibly of mechanical nature. No evidence of free air was identified. Gas and stool are noted in the colon in a normal fashion. No additional organomegaly, mass lesions, or pathologic calcifications were identified. Minimal dextroconvex scoliosis is noted at the thoracolumbar spine. IMPRESSION: Findings suggest the possibility of a mechanical obstruction of the mid to distal small bowel, although localized paralytic ileus or possibly early gastroenteritis would also be considerations. Findings should be correlated clinically. Followup studies may be warranted. No free air is seen at this time. MTDD
--- NOTE | 2017-11-22 12:22 | PCM.HP ---
H&P History of Present Illness - General Date of Service: 11/22/17 Admit Problem/Dx: Partial SBO. Source of Information: Patient, Old Records, Provider History Limitations: Reports: No Limitations - History of Present Illness Initial Comments - Free Text/Narative: Patient is a 67-year-old male with no medical problems other than a history of diverticulitis in September which resulted in a diverting colostomy. Plan is to re- anastomosis in the end of December if he does well. Last night at 11:30 he was in bed trying to sleep and he started to develop pain in the abdomen. By 3 AM it was so severe that he decided he needed to come in. He had one episode of nausea and vomiting in route to the car. He also had "heartburn" with this which persisted until his colostomy started to put out gas and stool. Labs were normal. X-ray showed partial small bowel obstruction in the ER. Vital signs were normal. He was admitted for further treatment and by 10 AM was having normal output in his ostomy and had a very large stool. All his symptoms were gone. He was seen by Dr. Calles from general surgery who agreed with advancing his diet and discharge if he tolerated oral which she has. The patient is eager to be discharged at this point. Past medical history: Diverting colostomy for diverticulitis requiring surgical intervention in September. Otherwise negative. Current medications: Aspirin daily 81 mg otherwise none. 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 He has 5 children that are all grown and gone. He is a nonsmoker, rare ETOH drinker. Lower abdomen Pain Score (Numeric/FACES): 5 - Related Data Allergies/Adverse Reactions: Allergies Allergy/AdvReac Type Severity Reaction Status Date / Time No Known Allergies Allergy Verified 11/22/17 03:51 Home Medications: Home Meds NK [No Known Home Meds] 09/26/17 [History] Past Medical History HEENT History: Reports: Other (See Below) Other HEENT History: Wears reading glasses. Gastrointestinal History: Reports: Diverticulosis - Infectious Disease History Infectious Disease History: Reports: Chicken Pox, Measles, Mumps Other Infectious Disease History: Uncertain if had Swedish Measles (Rubella). - Past Surgical History HEENT Surgical History: Reports: Adenoidectomy, Tonsillectomy GI Surgical History: Reports: Colonoscopy, Colostomy Social & Family History - Family History Family Medical History: Noncontributory - Tobacco Use Smoking Status *Q: Never Smoker - Caffeine Use Caffeine Use: Reports: Coffee, Soda - Alcohol Use Days Per Week of Alcohol Use: 1 Number of Drinks Per Day: 1 Total Drinks Per Week: 1 - Recreational Drug Use Recreational Drug Use: No H&P Review of Systems - Review of Systems: Review Of Systems: ROS reveals no pertinent complaints other than HPI. Exam - Exam Exam: See Below - Vital Signs Vital Signs: Last Vital Signs Temp 36.8 C 11/22/17 07:40 Pulse 85 11/22/17 07:40 Resp 20 11/22/17 07:40 BP 136/80 11/22/17 07:40 Pulse Ox 95 11/22/17 07:40 Weight: 83.325 kg - Patient Data Lab Results Last 24 hrs: Laboratory Results - last 24 hr 11/22/17 11/22/17 11/22/17 Range/Units 03:42 04:12 04:12 WBC 9.7 (4.5-12.0) X10-3/uL RBC 4.89 (4.30-5.75) x10(6)uL Hgb 15.4 (11.5-15.5) g/dL Hct 45.6 (30.0-51.3) % MCV 93.3 (80-96) fL MCH 31.6 (27.7-33.6) pg MCHC 33.8 (32.2-35.4) g/dL RDW 13.1 (11.5-15.5) % Plt Count 199 (125-369) X10(3)uL MPV 8.4 (7.4-10.4) fL Neut % (Auto) 81.4 (46-82) % Lymph % (Auto) 10.3 L (13-37) % [place] % (Auto) 6.7 (4-12) % Eos % (Auto) 1 (1.0-5.0) % Baso % (Auto) 1 (0-2) % Neut # (Auto) 7.8 (1.6-8.3) # Lymph # (Auto) 1.0 (0.6-5.0) # [place] # (Auto) 0.7 (0.0-1.3) # Eos # (Auto) 0.1 (0.0-0.8) # Baso # (Auto) 0.1 (0.0-0.2) # Sodium 142 (135-145) mmol/L Potassium 3.6 (3.5-5.3) mmol/L Chloride 105 (100-110) mmol/L Carbon Dioxide 28 (21-32) mmol/L BUN 16 (7-18) mg/dL Creatinine 1.1 (0.70-1.30) mg/dL Est Cr Clr Drug Dosing 64.77 mL/min Estimated GFR (MDRD) > 60 (>60) BUN/Creatinine Ratio 14.5 (9-20) Glucose 112 (80-116) mg/dL Calcium 9.3 (8.6-10.2) mg/dL Total Bilirubin 0.4 (0.1-1.3) mg/dL AST 24 D (5-25) IU/L ALT 32 D (12-36) U/L Alkaline Phosphatase 59 (56-112) IU/L C-Reactive Protein (0.5-0.9) mg/dL Total Protein 7.2 (6.0-8.0) g/dL Albumin 3.9 (3.2-4.6) g/dL Globulin 3.3 g/dL Albumin/Globulin Ratio 1.2 Urine Color Yellow (YELLOW) Urine Appearance Clear (CLEAR) Urine pH 8.0 H (5.0-6.5) Ur Specific [place] 1.015 (1.010-1.025) Urine Protein Negative (NEGATIVE) mg/dL Urine Glucose (UA) Normal (NEGATIVE) mg/dL Urine Ketones Negative (NEGATIVE) mg/dL Urine Occult Blood Negative (NEGATIVE) Urine Nitrite Negative (NEGATIVE) Urine Bilirubin Negative (NEGATIVE) Urine Urobilinogen Normal (NEGATIVE) mg/dL Ur Leukocyte Esterase Negative (NEGATIVE) Urine RBC 0-5 (0) Urine WBC 0-5 (0) Ur Squamous Epith Cells Rare (NS,R,O) Urine Bacteria Rare H (NS) 11/22/17 Range/Units 04:12 WBC (4.5-12.0) X10-3/uL RBC (4.30-5.75) x10(6)uL Hgb (11.5-15.5) g/dL Hct (30.0-51.3) % MCV (80-96) fL MCH (27.7-33.6) pg MCHC (32.2-35.4) g/dL RDW (11.5-15.5) % Plt Count (125-369) X10(3)uL MPV (7.4-10.4) fL Neut % (Auto) (46-82) % Lymph % (Auto) (13-37) % [place] % (Auto) (4-12) % Eos % (Auto) (1.0-5.0) % Baso % (Auto) (0-2) % Neut # (Auto) (1.6-8.3) # Lymph # (Auto) (0.6-5.0) # [place] # (Auto) (0.0-1.3) # Eos # (Auto) (0.0-0.8) # Baso # (Auto) (0.0-0.2) # Sodium (135-145) mmol/L Potassium (3.5-5.3) mmol/L Chloride (100-110) mmol/L Carbon Dioxide (21-32) mmol/L BUN (7-18) mg/dL Creatinine (0.70-1.30) mg/dL Est Cr Clr Drug Dosing mL/min Estimated GFR (MDRD) (>60) BUN/Creatinine Ratio (9-20) Glucose (80-116) mg/dL Calcium (8.6-10.2) mg/dL Total Bilirubin (0.1-1.3) mg/dL AST (5-25) IU/L ALT (12-36) U/L Alkaline Phosphatase (56-112) IU/L C-Reactive Protein < 0.2 L (0.5-0.9) mg/dL Total Protein (6.0-8.0) g/dL Albumin (3.2-4.6) g/dL Globulin g/dL Albumin/Globulin Ratio Urine Color (YELLOW) Urine Appearance (CLEAR) Urine pH (5.0-6.5) Ur Specific [place] (1.010-1.025) Urine Protein (NEGATIVE) mg/dL Urine Glucose (UA) (NEGATIVE) mg/dL Urine Ketones (NEGATIVE) mg/dL Urine Occult Blood (NEGATIVE) Urine Nitrite (NEGATIVE) Urine Bilirubin (NEGATIVE) Urine Urobilinogen (NEGATIVE) mg/dL Ur Leukocyte Esterase (NEGATIVE) Urine RBC (0) Urine WBC (0) Ur Squamous Epith Cells (NS,R,O) Urine Bacteria (NS) Result Diagrams: 11/22/17 04:12 11/22/17 04:12 - Problem List (1) Small bowel obstruction, partial SNOMED Code(s): 508550029 ICD Code: K56.600 - PARTIAL INTESTINAL OBSTRUCTION, UNSPECIFIED TO CAUSE Status: Acute Current Visit: Yes Problem Details: Now resolved. Patient is back to baseline. Will be discharged to follow up with Dr. Lyle previously scheduled. Follow-up with PCP as previously scheduled. No new medications. Problem List Initiated/Reviewed/Updated: Yes Orders Last 24hrs: Active Orders 24 hr Category Date Time Status Admission Status [Patient Status] [ADT] Routine ADT 11/22/17 05:45 Active Notify Provider Consults [RC] ASDIRECTED Care 11/22/17 05:57 Active Oxygen Therapy [RC] PRN Care 11/22/17 05:54 Active Ready for Discharge [RC] PER UNIT ROUTINE Care 11/22/17 12:15 Ordered Up ad Bertha [RC] ASDIRECTED Care 11/22/17 05:54 Active VTE/DVT Education [RC] Per Unit Routine Care 11/22/17 05:54 Active Vital Signs [RC] 00,04,08,12,16,20 Care 11/22/17 05:54 Active Consult to Physician [CONS] Routine Cons 11/22/17 05:56 Ordered Soft Diet [DIET] Diet 11/22/17 Lunch Active BASIC METABOLIC PANEL,BMP [CHEM] AM Lab 11/23/17 05:11 Ordered C-REACTIVE PROTEIN [CHEM] AM Lab 11/23/17 05:11 Ordered CBC W/O DIFF,HEMOGRAM [HEME] AM Lab 11/23/17 05:11 Ordered UA W/MICROSCOPIC [URIN] Stat Lab 11/22/17 03:42 Ordered Enoxaparin [Lovenox] Med 11/22/17 06:00 Active 40 mg SUBCUT Q24H Ketorolac [Toradol] Med 11/22/17 10:46 Active 15 mg IVPUSH Q6H PRN Morphine Med 11/22/17 05:54 Active 2 mg IVPUSH Q2H PRN Ondansetron [Zofran] Med 11/22/17 05:54 Active 4 mg IV Q4H PRN Sodium Chloride 0.9% [Normal Saline] 1,000 ml Med 11/22/17 06:00 Active IV ASDIRECTED Resuscitation Status Routine Resus Stat 11/22/17 05:54 Ordered Medication Orders Enoxaparin Sodium (Lovenox) 40 mg SUBCUT Q24H [facility] Last Admin: 11/22/17 06:21 Dose: 40 mg Sodium Chloride (Normal Saline) 1,000 mls @ 125 mls/hr IV ASDIRECTED [facility] Last Admin: 11/22/17 06:18 Dose: 125 mls/hr Ketorolac Tromethamine (Toradol) 15 mg IVPUSH Q6H PRN PRN Reason: PAIN Morphine Sulfate (Morphine) 2 mg IVPUSH Q2H PRN PRN Reason: Pain (severe 7-10) Ondansetron HCl (Zofran) 4 mg IV Q4H PRN PRN Reason: Nausea/Vomiting Assessment/Plan Comment:: CODE STATUS discussed with the patient. If the patient's heart were to stop beating or he were to stop breathing, he would want heroic measures like CPR, chest compressions, electric shocks, intubation in order to resuscitate him. Thus patient is FULL CODE.
== END 2017-11-22 13:05 | disposition home or self-care (01) | DRG 390 ==
LOC: FB.ED 03:38 → FB.MS 05:45
PROVIDERS: ADMIT Emergency Medicine; ATTEND Family Medicine
DX: K56.600 Partial intestinal obstruction, unspecified as to cause (principal); K57.90 Diverticulosis of intestine, part unspecified, without perforation or abscess without bleeding; Z90.49 Acquired absence of other specified parts of digestive tract; Z93.3 Colostomy status; R10.30 Lower abdominal pain, unspecified; Z79.82 Long term (current) use of aspirin
CPT/HCPCS: 36415; 74019; 80053; 81001; 85025; 86140; 96374; 96375; 99285; J1650; J1885; J2405; J7030

== ENCOUNTER 2018-02-01 10:25 | Inpatient (IN) | payer MEDICARE, OTHER ==
[2018-02-01] MEDS ORDERED: Lactated Ringers 1,000 ML IV SCH (10:30)
--- NOTE | 2018-02-01 12:21 | PCM.HPR ---
H & P Addendum review - H & P Addendum Review Date of Original H & P: 01/26/18 Date Reviewed: 02/01/18 Time Reviewed: 12:21 Patient was Examined: No Changes
[2018-02-01] MEDS ORDERED: Rocuronium 100 MG/10 ML MDV IV ONE (12:30)
[2018-02-01] MEDS ORDERED: Ondansetron 4 MG/2 ML SDV IVPUSH ONE (12:30)
[2018-02-01] MEDS ORDERED: Ketorolac 30 MG/ML SDV IVPUSH ONE (12:30)
[2018-02-01] MEDS ORDERED: cefOXitin 1 GM Vial IV ONE (12:30)
[2018-02-01] MEDS ORDERED: Lactated Ringers 1,000 ML IV ONE (12:30)
[2018-02-01] MEDS ORDERED: fentaNYL 100 MCG/2 ML SDV IV ONE (12:30)
[2018-02-01] MEDS ORDERED: Neostigmine Methylsulfate 10 MG/10 ML MDV IVPUSH ONE (12:30)
[2018-02-01] MEDS ORDERED: HYDROmorphone 2 MG/ML SDV IV ONE (12:30)
[2018-02-01] MEDS ORDERED: Midazolam 1 MG/ML 2 ML SDV IV ONE (12:30)
[2018-02-01] MEDS ORDERED: diphenhydrAMINE 50 MG/ML SDV IVPUSH ONE (12:30)
[2018-02-01] MEDS ORDERED: Succinylcholine 200 MG/10 ML MDV IV ONE (12:30)
[2018-02-01] MEDS ORDERED: Propofol 200 MG/20 ML SDV IV ONE (12:30)
[2018-02-01] MEDS ORDERED: Dexamethasone 4 MG/ML 5 ML MDV IVPUSH ONE (12:30)
[2018-02-01] MEDS ORDERED: ePHEDrine 50 MG/ML SDV IV ONE (12:30)
[2018-02-01] MEDS ORDERED: Glycopyrrolate 0.2 MG/ML 5 ML MDV IV ONE (12:30)
--- NOTE | 2018-02-01 16:01 | PCM.OPNOTE ---
- General Post-Op/Procedure Note Date of Surgery/Procedure: 02/01/18 Operative Procedure(s): Sigmoid Colostomy takedown. Repair Peristomal Henia Pre Op Diagnosis: Hx perforated Diverticulitis Post-Op Diagnosis: Same Anesthesia Technique: General ET Tube Primary Surgeon: Manny Calles Anesthesia Provider: E[employer] Specialist: Jhonathan Rodriguez Pathology: Bowel ends EBL in mLs: 100 Complications: None Condition: Good
[2018-02-01] MEDS ORDERED: Naloxone 0.4 MG/ML SDV IVPUSH PRN (16:10)
[2018-02-01] MEDS: Sodium Chloride 0.9% 10 ML Syringe FLUSH PRN ×2 (16:14→17:06)
[2018-02-01] MEDS: Morphine 2 MG/ML Syringe IVPUSH PRN ×4 (16:16→16:33)
[2018-02-01] MEDS ORDERED: hydrOXYzine HCl 50 MG/ML SDV IM ONE (16:24)
[2018-02-01] MEDS: Morphine PF 30 MG/30 ML PCA Vial IV PRN (16:59)
--- NOTE | 2018-02-01 17:12 | OR ---
DATE OF OPERATION: 02/01/2018 SURGEON: Manny Calles MD PREOPERATIVE DIAGNOSES: 1. History of perforated sigmoid diverticulitis, status post sigmoid colectomy with end colostomy. 2. Parastomal hernia. POSTOPERATIVE DIAGNOSES: 1. History of perforated sigmoid diverticulitis, status post sigmoid colectomy with end colostomy. 2. Parastomal hernia. PROCEDURES PERFORMED: 1. Takedown of sigmoid colostomy with end-to-end anastomosis. 2. Repair of parastomal hernia. ANESTHESIA: General. BARTENDER SERVER: Dr. Jhonathan Rodriguez. Dr. Jhonathan Rodriguez was integral for the operation to help with retraction, assistance, and reduction of surgical time. DESCRIPTION OF PROCEDURE: The patient was brought to the operating room, where general endotracheal anesthesia was administered. A Dawson catheter was inserted. The abdomen was clipped, the ostomy site was closed with running #2-0 Chromic. Legs were placed in stirrups. The abdomen was prepped with ChloraPrep and draped sterilely. Time-out had been performed. A midline incision was made through the previous scar and extended into the peritoneal cavity through the upper portion. There were some omental adhesions on the lower portion that were taken down with sharp dissection. Next, the ostomy site was taken down by making a transverse elliptical incision and dissecting along the colon and mesentery. This took some time because of the parastomal hernia that was present and hernia sac having to be identified. Once the distal portion of the colon had been freed up, the colon was brought intraperitoneal, where the remaining lateral portion was freed up along the lateral sidewall. The fascial edges were then identified on both the anterior and posterior rectus fascia. The posterior rectus fascia was closed with running 0 Prolene transversely. The anterior rectus fascia was closed vertically with running #1 PDS. This provided a good strong repair. Next, wound protractor was placed and [place] retractor system was set up. The small bowel had some adhesions into the pelvis that were freed up sharply. Small bowel was then packed in the upper abdomen. The distal sigmoid colon and rectal stump area were then exposed. The mesentery to the distal portion of the sigmoid colon stump was from the bowel and larger vessels tied with #0 Vicryl. The rectal wall was thinned using electrocautery and blunt dissection, and larger pedicles being tied to clear off the rectum at the peritoneal reflection. The distal sigmoid colon was then divided at the rectosigmoid junction using the Contour stapler device. The sigmoid colon was freed up along its lateral peritoneal reflection. There was plenty of length to easily reach into the pelvis without any tension. The distal 2 cm was cleared. All of the colon was healthy and had good pulsatile blood flow to it. The pursestring device was used to clamp the distal sigmoid colon and divided. The colon was then opened and the 25-mm sizer snugly fit into the colon. The 25-mm EEA stapler was chosen. The anvil was placed in the colon, and the pursestring tied and reinforced with #3-[address] Rodriguez then irrigated the rectum with Betadine and inflated with air. There was no leakage from the staple line with the rectum distended and saline in the pelvis. The stapler end was then brought through the rectum and opened through the staple line. The ends were connected and fired. The stapler was then removed. The donuts were intact. The anastomosis was reinforced with #3-0 silk circumferentially. The anastomosis was inspected with air inflated, and there was no leakage from the anastomosis. Irrigation was used and return was clear and hemostasis assured. Retractor system was removed. The midline incision was closed with running #2 Prolene with several interrupted #1 PDS. Wounds were thoroughly irrigated and reapproximated loosely with zheng. A Lanre drain was also brought out through the lateral aspect of the colostomy takedown site. Sterile dressings were applied. The patient tolerated the procedure well. Estimated blood losswas 100 mL. He returned to Postanesthesia in a stable condition. /[id number] ARMANDO/GARRETT
[2018-02-01] MEDS: cefOXitin 1 GM in Premix Bag 1 BAG IV SCH ×2 (17:14→22:54)
[2018-02-01] MEDS: Pantoprazole 40 MG Vial IVPUSH SCH (17:14)
[2018-02-01] MEDS: Lactated Ringers 1,000 ML IV SCH (19:47)
[2018-02-02] MEDS: Lactated Ringers 1,000 ML IV SCH ×3 (04:02→22:02)
[2018-02-02] MEDS: cefOXitin 1 GM in Premix Bag 1 BAG IV SCH ×4 (04:52→22:05)
--- NOTE | 2018-02-02 09:47 | PCM.SURGPN ---
- General Info Date of Service: 02/02/18 Date of Surgery/Procedure: 02/01/18 POD#: 1 Post-Op Diagnosis: Hx Perforated Diverticulitis Functional Status: Reports: Pain Controlled, Ambulating - Review of Systems General: Reports: No Symptoms Pulmonary: Reports: No Symptoms Cardiovascular: Reports: No Symptoms Gastrointestinal: Reports: No Symptoms, Abdominal Pain (at incision site) Genitourinary: Reports: No Symptoms - Patient Data Vitals - Most Recent: Last Vital Signs Temp 98.2 F 02/02/18 07:15 Pulse 84 02/02/18 07:15 Resp 14 02/02/18 07:15 BP 99/53 L 02/02/18 07:15 Pulse Ox 95 02/02/18 07:15 Weight - Most Recent: 80.739 kg I&O - Last 24 Hours: Intake & Output 02/01/18 02/02/18 02/02/18 22:59 06:59 14:59 Intake Total 607 960 Output Total 200 300 Balance 407 660 Lab Results Last 24 Hrs: Laboratory Results - last 24 hr 02/02/18 02/02/18 Range/Units 06:20 06:20 WBC 13.4 H (4.5-12.0) X10-3/uL RBC 4.35 (4.30-5.75) x10(6)uL Hgb 13.9 (11.5-15.5) g/dL Hct 40.8 (30.0-51.3) % MCV 93.6 (80-96) fL MCH 31.9 (27.7-33.6) pg MCHC 34.1 (32.2-35.4) g/dL RDW 12.6 (11.5-15.5) % Plt Count 180 (125-369) X10(3)uL Sodium 134 L (135-145) mmol/L Potassium 4.5 (3.5-5.3) mmol/L Chloride 103 (100-110) mmol/L Carbon Dioxide 29 (21-32) mmol/L BUN 21 H (7-18) mg/dL Creatinine 1.3 (0.70-1.30) mg/dL Est Cr Clr Drug Dosing 54.81 mL/min Estimated GFR (MDRD) 55 L (>60) BUN/Creatinine Ratio 16.2 (9-20) Glucose 130 H (80-116) mg/dL Calcium 8.4 L (8.6-10.2) mg/dL Med Orders - Current: Current Medications Enoxaparin Sodium (Lovenox) 40 mg SUBCUT Q24H [facility] Cefoxitin Sodium 1 gm/ Premix 50 mls @ 100 mls/hr IV Q6H [facility] Stop: 02/03/18 05:29 Last Admin: 02/02/18 04:52 Dose: 100 mls/hr Lactated Ringer's (Ringers, Lactated) 1,000 mls @ 125 mls/hr IV ASDIRECTED [facility] Last Admin: 02/02/18 04:02 Dose: 125 mls/hr Morphine Sulfate (Morphine) 2 mg IVPUSH Q3M PRN PRN Reason: Abdominal Pain Last Admin: 02/01/18 16:33 Dose: 2 mg Morphine Sulfate (Morphine Floral Associate 30 Mg In 30 Ml) 0 mg IV ASDIRECTED PRN; Protocol PRN Reason: Pain (severe 7-10) Last Admin: 02/01/18 16:59 Dose: 30 mg Naloxone HCl (Narcan) 0.4 mg IVPUSH Q2M PRN PRN Reason: Respiratory Distress Pantoprazole Sodium (Protonix Iv) 40 mg IVPUSH DAILY@1600 [facility] Last Admin: 02/01/18 17:14 Dose: 40 mg Sodium Chloride (Saline Flush) 10 ml FLUSH ASDIRECTED PRN PRN Reason: Keep Vein Open Last Admin: 02/01/18 17:06 Dose: 10 ml Discontinued Medications Hydroxyzine HCl (Vistaril) 50 mg IM ONETIME ONE Stop: 02/01/18 16:25 Last Admin: 02/01/18 16:28 Dose: 50 mg Lactated Ringer's (Ringers, Lactated) 1,000 mls @ 125 mls/hr IV ASDIRECTED [facility] Last Admin: 02/01/18 12:10 Dose: 125 mls/hr - Exam Wound/Incisions: Dressing Dry and Intact (changed by me) General: Alert, Oriented Lungs: Clear to Auscultation, Normal Respiratory Effort GI/Abdominal Exam: Soft - Problem List Review Problem List Initiated/Reviewed/Updated: Yes - My Orders Last 24 Hours: Active Orders 24 hr Category Date Time Status Patient Status [ADT] Routine ADT 02/01/18 10:30 Active Antiembolic Devices [RC] .Routine Care 02/01/18 16:07 Active Cardiac Monitoring [RC] Q8H Care 02/01/18 16:10 Active Communication Order [RC] STAT Care 02/01/18 16:10 Active Drain Management [RC] Q12HR Care 02/01/18 16:04 Active Intake and Output [RC] 06,14,22 Care 02/01/18 16:02 Active Notify Provider [RC] PRN Care 02/01/18 16:10 Active Oxygen Therapy [RC] PRN Care 02/01/18 16:01 Active BUSINESS PROCESS ARCHITECT Record [RC] PER UNIT ROUTINE Care 02/01/18 16:10 Active Pulse Oximetry [RC] CONTINUOUS Care 02/01/18 16:10 Active RT Incentive Spirometry [RC] Q2HWA Care 02/01/18 16:01 Active Up With Assistance [RC] QSHIFT Care 02/01/18 16:01 Active Urinary Catheter Assessment [RC] QSHIFT Care 02/01/18 10:30 Active VTE/DVT Education [RC] 08 Care 02/01/18 16:07 Active Vital Signs [RC] QSHIFT Care 02/01/18 16:01 Active Enoxaparin [Lovenox] Med 02/02/18 16:15 Active 40 mg SUBCUT Q24H Lactated Ringers [Ringers, Lactated] 1,000 ml Med 02/01/18 16:15 Active IV ASDIRECTED Morphine Med 02/01/18 16:09 Active 2 mg IVPUSH Q3M PRN Morphine PF [Morphine BUSINESS PROCESS ARCHITECT 30 MG in 30 ML] Med 02/01/18 16:10 Active See Protocol IV ASDIRECTED PRN Naloxone [Narcan] Med 02/01/18 16:10 Active 0.4 mg IVPUSH Q2M PRN Pantoprazole [ProTONIX IV] Med 02/01/18 16:15 Active 40 mg IVPUSH DAILY@1600 Sodium Chloride 0.9% [Saline Flush] Med 02/01/18 10:30 Active 10 ml FLUSH ASDIRECTED PRN cefOXitin [Mefoxin in Dextrose,Iso-Osm 1 GM/50 ML] 1 gm Med 02/01/18 17:00 Active Premix Bag 1 bag IV Q6H Abdominal Binder [OM.PC] Per Unit Routine Oth 02/01/18 16:02 Ordered DVT/VTE Prophylaxis Reflex [OM.PC] Per Unit Routine Oth 02/01/18 16:07 Ordered Medication Discontinuation Instructions [OM.PC] Stat Oth 02/01/18 16:10 Ordered Peripheral IV Insertion Adult [OM.PC] Routine Oth 02/01/18 10:30 Ordered Sequential Compression Device [OM.PC] Routine Oth 02/01/18 10:30 Ordered Sequential Compression Device [OM.PC] Routine Oth 02/01/18 16:01 Ordered Medication Orders Enoxaparin Sodium (Lovenox) 40 mg SUBCUT Q24H [facility] Cefoxitin Sodium 1 gm/ Premix 50 mls @ 100 mls/hr IV Q6H [facility] Stop: 02/03/18 05:29 Last Admin: 02/02/18 04:52 Dose: 100 mls/hr Infusion: 02/01/18 23:24 Dose: 100 mls/hr Admin: 02/01/18 22:54 Dose: 100 mls/hr Infusion: 02/01/18 17:44 Dose: 100 mls/hr Admin: 02/01/18 17:14 Dose: 100 mls/hr Lactated Ringer's (Ringers, Lactated) 1,000 mls @ 125 mls/hr IV ASDIRECTED [facility] Last Admin: 02/02/18 04:02 Dose: 125 mls/hr Infusion: 02/02/18 03:47 Dose: 125 mls/hr Admin: 02/01/18 19:47 Dose: 125 mls/hr Morphine Sulfate (Morphine) 2 mg IVPUSH Q3M PRN PRN Reason: Abdominal Pain Last Admin: 02/01/18 16:33 Dose: 2 mg Admin: 02/01/18 16:26 Dose: 2 mg Admin: 02/01/18 16:20 Dose: 2 mg Admin: 02/01/18 16:16 Dose: 2 mg Morphine Sulfate (Morphine Floral Associate 30 Mg In 30 Ml) 0 mg IV ASDIRECTED PRN; Protocol PRN Reason: Pain (severe 7-10) Last Admin: 02/01/18 16:59 Dose: 30 mg Naloxone HCl (Narcan) 0.4 mg IVPUSH Q2M PRN PRN Reason: Respiratory Distress Pantoprazole Sodium (Protonix Iv) 40 mg IVPUSH DAILY@1600 [facility] Last Admin: 02/01/18 17:14 Dose: 40 mg Sodium Chloride (Saline Flush) 10 ml FLUSH ASDIRECTED PRN PRN Reason: Keep Vein Open Last Admin: 02/01/18 17:06 Dose: 10 ml Admin: 02/01/18 16:14 Dose: 10 ml - Assessment Assessment (Free Text/Narrative):: Doing well POD #1 - Plan Plan (Free Text/Narrative):: Cont as is, Start Lovenox today
[2018-02-02] MEDS: Morphine PF 30 MG/30 ML PCA Vial IV PRN (13:50)
[2018-02-02] MEDS: Pantoprazole 40 MG Vial IVPUSH SCH (15:22)
[2018-02-02] MEDS: Enoxaparin 40 MG/0.4 ML Syringe SUBCUT SCH (16:25)
[2018-02-03] MEDS: cefOXitin 1 GM in Premix Bag 1 BAG IV SCH (05:03)
[2018-02-03] MEDS: Morphine PF 30 MG/30 ML PCA Vial IV PRN (06:05)
[2018-02-03] MEDS: Lactated Ringers 1,000 ML IV SCH ×2 (09:33→19:44)
--- NOTE | 2018-02-03 11:25 | PCM.SURGPN ---
- General Info Date of Service: 02/03/18 POD#: 2 Functional Status: Reports: Pain Controlled, Ambulating - Review of Systems General: Reports: No Symptoms Cardiovascular: Reports: No Symptoms Gastrointestinal: Reports: No Symptoms, Abdominal Pain (with movement at incision) Genitourinary: Reports: No Symptoms - Patient Data Vitals - Most Recent: Last Vital Signs Temp 97.9 F 02/03/18 08:25 Pulse 84 02/03/18 08:25 Resp 14 02/03/18 08:25 BP 134/76 02/03/18 08:25 Pulse Ox 88 L 02/03/18 10:34 Weight - Most Recent: 80.739 kg I&O - Last 24 Hours: Intake & Output 02/02/18 02/03/18 02/03/18 22:59 06:59 14:59 Intake Total 1964 791 334 Output Total 815 750 Balance 1149 41 334 Med Orders - Current: Current Medications Enoxaparin Sodium (Lovenox) 40 mg SUBCUT Q24H [facility] Last Admin: 02/02/18 16:25 Dose: 40 mg Lactated Ringer's (Ringers, Lactated) 1,000 mls @ 100 mls/hr IV ASDIRECTED [facility] Last Admin: 02/03/18 09:33 Dose: 100 mls/hr Ketorolac Tromethamine (Toradol) 30 mg IVPUSH Q6H [facility] Stop: 02/08/18 11:21 Morphine Sulfate (Morphine) 2 mg IVPUSH Q3M PRN PRN Reason: Abdominal Pain Last Admin: 02/01/18 16:33 Dose: 2 mg Morphine Sulfate (Morphine Community Leader 30 Mg In 30 Ml) 0 mg IV ASDIRECTED PRN; Protocol PRN Reason: Pain (severe 7-10) Last Admin: 02/03/18 06:05 Dose: 30 mg Naloxone HCl (Narcan) 0.4 mg IVPUSH Q2M PRN PRN Reason: Respiratory Distress Pantoprazole Sodium (Protonix Iv) 40 mg IVPUSH DAILY@1600 [facility] Last Admin: 02/02/18 15:22 Dose: 40 mg Sodium Chloride (Saline Flush) 10 ml FLUSH ASDIRECTED PRN PRN Reason: Keep Vein Open Last Admin: 02/01/18 17:06 Dose: 10 ml Discontinued Medications Hydroxyzine HCl (Vistaril) 50 mg IM ONETIME ONE Stop: 02/01/18 16:25 Last Admin: 02/01/18 16:28 Dose: 50 mg Lactated Ringer's (Ringers, Lactated) 1,000 mls @ 125 mls/hr IV ASDIRECTED [facility] Last Admin: 02/01/18 12:10 Dose: 125 mls/hr Cefoxitin Sodium 1 gm/ Premix 50 mls @ 100 mls/hr IV Q6H [facility] Stop: 02/03/18 05:29 Last Admin: 02/03/18 05:03 Dose: 100 mls/hr Lactated Ringer's (Ringers, Lactated) 1,000 mls @ 125 mls/hr IV ASDIRECTED [facility] Last Admin: 02/02/18 22:02 Dose: 125 mls/hr - Exam Wound/Incisions: Healing Well, Dressing Dry and Intact, Drainage (serous from hieu) General: Alert, Oriented Lungs: Clear to Auscultation GI/Abdominal Exam: Soft Extremities: Normal Inspection, Non-Tender, No Pedal Edema - Problem List Review Problem List Initiated/Reviewed/Updated: Yes - My Orders Last 24 Hours: Active Orders 24 hr Category Date Time Status Overnight Pulse Oximetry [RC] Click to Edit Care 02/02/18 10:36 Active Recreational Specialist Discontinue [Cardiac Monitoring Care 02/02/18 10:30 Active Discontinue] [RC] Click to Edit BASIC METABOLIC PANEL,BMP [CHEM] Routine Lab 02/04/18 07:00 Ordered CBC W/O DIFF,HEMOGRAM [HEME] Routine Lab 02/04/18 07:00 Ordered Enoxaparin [Lovenox] Med 02/02/18 16:15 Active 40 mg SUBCUT Q24H Ketorolac [Toradol] Med 02/03/18 11:30 Ordered 30 mg IVPUSH Q6H Lactated Ringers [Ringers, Lactated] 1,000 ml Med 02/02/18 22:45 Active IV ASDIRECTED Pulse Oximetry Continuous Monitoring [OM.PC] Routine Oth 02/02/18 10:36 Ordered Medication Orders Enoxaparin Sodium (Lovenox) 40 mg SUBCUT Q24H [facility] Last Admin: 02/02/18 16:25 Dose: 40 mg Lactated Ringer's (Ringers, Lactated) 1,000 mls @ 100 mls/hr IV ASDIRECTED [facility] Last Admin: 02/03/18 09:33 Dose: 100 mls/hr Ketorolac Tromethamine (Toradol) 30 mg IVPUSH Q6H [facility] Stop: 02/08/18 11:21 Morphine Sulfate (Morphine) 2 mg IVPUSH Q3M PRN PRN Reason: Abdominal Pain Last Admin: 02/01/18 16:33 Dose: 2 mg Admin: 02/01/18 16:26 Dose: 2 mg Admin: 02/01/18 16:20 Dose: 2 mg Admin: 02/01/18 16:16 Dose: 2 mg Morphine Sulfate (Morphine Community Leader 30 Mg In 30 Ml) 0 mg IV ASDIRECTED PRN; Protocol PRN Reason: Pain (severe 7-10) Last Admin: 02/03/18 06:05 Dose: 30 mg Admin: 02/02/18 13:50 Dose: 30 mg Admin: 02/01/18 16:59 Dose: 30 mg Naloxone HCl (Narcan) 0.4 mg IVPUSH Q2M PRN PRN Reason: Respiratory Distress Pantoprazole Sodium (Protonix Iv) 40 mg IVPUSH DAILY@1600 [facility] Last Admin: 02/02/18 15:22 Dose: 40 mg Admin: 02/01/18 17:14 Dose: 40 mg Sodium Chloride (Saline Flush) 10 ml FLUSH ASDIRECTED PRN PRN Reason: Keep Vein Open Last Admin: 02/01/18 17:06 Dose: 10 ml Admin: 02/01/18 16:14 Dose: 10 ml - Assessment Assessment (Free Text/Narrative):: Doing well POD #2 - Plan Plan (Free Text/Narrative):: Add Toradol for pain Keep in [place] for another day after major pelvic surgery
[2018-02-03] MEDS: Ketorolac 30 MG/ML SDV IVPUSH SCH ×2 (11:35→18:19)
[2018-02-03] MEDS: Pantoprazole 40 MG Vial IVPUSH SCH (16:18)
[2018-02-03] MEDS: Enoxaparin 40 MG/0.4 ML Syringe SUBCUT SCH (16:19)
[2018-02-04] MEDS: Ketorolac 30 MG/ML SDV IVPUSH SCH ×4 (00:19→17:55)
[2018-02-04] MEDS: Morphine PF 30 MG/30 ML PCA Vial IV PRN ×2 (02:25→12:28)
[2018-02-04] MEDS: Lactated Ringers 1,000 ML IV SCH (05:50)
--- NOTE | 2018-02-04 11:33 | PCM.SURGPN ---
- General Info Date of Service: 02/04/18 POD#: 3 Functional Status: Reports: Pain Controlled (had some left lateral abd pain at ostomy takedown site last pm, gone now) - Review of Systems Pulmonary: Reports: No Symptoms Cardiovascular: Reports: No Symptoms Gastrointestinal: Reports: No Symptoms, Abdominal Pain (as above, none now). Denies: Flatus - Patient Data Vitals - Most Recent: Last Vital Signs Temp 98.9 F 02/04/18 10:30 Pulse 99 02/04/18 10:30 Resp 20 02/04/18 10:30 BP 111/73 02/04/18 10:30 Pulse Ox 94 L 02/04/18 10:30 Weight - Most Recent: 80.739 kg I&O - Last 24 Hours: Intake & Output 02/03/18 02/04/18 02/04/18 22:59 06:59 14:59 Intake Total 555 750 Output Total 250 750 Balance 305 0 Lab Results Last 24 Hrs: Laboratory Results - last 24 hr 02/04/18 02/04/18 Range/Units 06:40 06:40 WBC 9.3 (4.5-12.0) X10-3/uL RBC 4.15 L (4.30-5.75) x10(6)uL Hgb 13.1 (11.5-15.5) g/dL Hct 38.3 (30.0-51.3) % MCV 92.3 (80-96) fL MCH 31.6 (27.7-33.6) pg MCHC 34.2 (32.2-35.4) g/dL RDW 12.3 (11.5-15.5) % Plt Count 137 (125-369) X10(3)uL Sodium 137 (135-145) mmol/L Potassium 3.9 (3.5-5.3) mmol/L Chloride 103 (100-110) mmol/L Carbon Dioxide 27 (21-32) mmol/L BUN 16 (7-18) mg/dL Creatinine 1.0 (0.70-1.30) mg/dL Est Cr Clr Drug Dosing 71.25 mL/min Estimated GFR (MDRD) > 60 (>60) BUN/Creatinine Ratio 16.0 (9-20) Glucose 83 (80-116) mg/dL Calcium 8.2 L (8.6-10.2) mg/dL Med Orders - Current: Current Medications Enoxaparin Sodium (Lovenox) 40 mg SUBCUT Q24H [facility] Last Admin: 02/03/18 16:19 Dose: 40 mg Potassium Cl/Dextrose/Lact Ringer's (D5 Lr With 20 Meq Kcl) 1,000 mls @ 100 mls /hr IV ASDIRECTED [facility] Ketorolac Tromethamine (Toradol) 30 mg IVPUSH Q6H [facility] Stop: 02/08/18 12:01 Last Admin: 02/04/18 06:04 Dose: 30 mg Morphine Sulfate (Morphine Cma Or Lpn 30 Mg In 30 Ml) 0 mg IV ASDIRECTED PRN; Protocol PRN Reason: Pain (severe 7-10) Last Admin: 02/04/18 02:25 Dose: 30 mg Naloxone HCl (Narcan) 0.4 mg IVPUSH Q2M PRN PRN Reason: Respiratory Distress Pantoprazole Sodium (Protonix Iv) 40 mg IVPUSH DAILY@1600 [facility] Last Admin: 02/03/18 16:18 Dose: 40 mg Sodium Chloride (Saline Flush) 10 ml FLUSH ASDIRECTED PRN PRN Reason: Keep Vein Open Last Admin: 02/01/18 17:06 Dose: 10 ml Discontinued Medications Cefoxitin Sodium (Mefoxin) 2 gm IV .STK-MED ONE Stop: 02/01/18 12:31 Dexamethasone (Dexamethasone) 8 mg IVPUSH .STK-MED ONE Stop: 02/01/18 12:31 Diphenhydramine HCl (Benadryl) 12.5 mg IVPUSH .STK-MED ONE Stop: 02/01/18 12:31 Ephedrine Sulfate (Ephedrine Sulfate) 20 mg IV .STK-MED ONE Stop: 02/01/18 12:31 Fentanyl (Sublimaze) 200 mcg IV .STK-MED ONE Stop: 02/01/18 12:31 Glycopyrrolate (Robinul) 0.4 mg IV .STK-MED ONE Stop: 02/01/18 12:31 Hydromorphone HCl (Dilaudid) 2 mg IV .STK-MED ONE Stop: 02/01/18 12:31 Hydroxyzine HCl (Vistaril) 50 mg IM ONETIME ONE Stop: 02/01/18 16:25 Last Admin: 02/01/18 16:28 Dose: 50 mg Lactated Ringer's (Ringers, Lactated) 1,000 mls @ 125 mls/hr IV ASDIRECTED [facility] Last Admin: 02/01/18 12:10 Dose: 125 mls/hr Cefoxitin Sodium 1 gm/ Premix 50 mls @ 100 mls/hr IV Q6H [facility] Stop: 02/03/18 05:29 Last Admin: 02/03/18 05:03 Dose: 100 mls/hr Lactated Ringer's (Ringers, Lactated) 1,000 mls @ 125 mls/hr IV ASDIRECTED [facility] Last Admin: 02/02/18 22:02 Dose: 125 mls/hr Lactated Ringer's (Ringers, Lactated) 1,000 mls @ 100 mls/hr IV ASDIRECTED [facility] Last Admin: 02/04/18 05:50 Dose: 100 mls/hr Lactated Ringer's (Ringers, Lactated) 1,000 mls @ as directed IV .STK-MED ONE Stop: 02/01/18 12:31 Ketorolac Tromethamine (Toradol) 30 mg IVPUSH .STK-MED ONE Stop: 02/01/18 12:31 Midazolam HCl (Versed 1 Mg/Ml) 2 mg IV .STK-MED ONE Stop: 02/01/18 12:31 Morphine Sulfate (Morphine) 2 mg IVPUSH Q3M PRN PRN Reason: Abdominal Pain Last Admin: 02/01/18 16:33 Dose: 2 mg Neostigmine Methylsulfate (Neostigmine Methylsulfate) 3 mg IVPUSH .STK-MED ONE Stop: 02/01/18 12:31 Ondansetron HCl (Zofran) 4 mg IVPUSH .STK-MED ONE Stop: 02/01/18 12:31 Propofol (Diprivan 20 Ml) 200 mg IV .STK-MED ONE Stop: 02/01/18 12:31 Rocuronium [place] (Zemuron) 100 mg IV .STK-MED ONE Stop: 02/01/18 12:31 Succinylcholine Chloride (Quelicin) 100 mg IV .STK-MED ONE Stop: 02/01/18 12:31 - Exam Wound/Incisions: Dressing Dry and Intact Lungs: Clear to Auscultation GI/Abdominal Exam: Soft, Non-Tender - Problem List Review Problem List Initiated/Reviewed/Updated: Yes - My Orders Last 24 Hours: Active Orders 24 hr Category Date Time Status Dextrose 5%-Lactated Ringers with KCl 20 mEq @ 100 mL/ Med 02/04/18 11:30 Ordered Hr (1000 mL) Dextrose 5%-Lact Ringers w/KCl [D5 LR with 20 mEq KCl] 1,000 ml IV ASDIRECTED Ketorolac [Toradol] Med 02/03/18 12:00 Active 30 mg IVPUSH Q6H Medication Orders Enoxaparin Sodium (Lovenox) 40 mg SUBCUT Q24H [facility] Last Admin: 02/03/18 16:19 Dose: 40 mg Admin: 02/02/18 16:25 Dose: 40 mg Potassium Cl/Dextrose/Lact Ringer's (D5 Lr With 20 Meq Kcl) 1,000 mls @ 100 mls /hr IV ASDIRECTED [facility] Ketorolac Tromethamine (Toradol) 30 mg IVPUSH Q6H [facility] Stop: 02/08/18 12:01 Last Admin: 02/04/18 06:04 Dose: 30 mg Admin: 02/04/18 00:19 Dose: 30 mg Admin: 02/03/18 18:19 Dose: 30 mg Admin: 02/03/18 11:35 Dose: 30 mg Morphine Sulfate (Morphine Cma Or Lpn 30 Mg In 30 Ml) 0 mg IV ASDIRECTED PRN; Protocol PRN Reason: Pain (severe 7-10) Last Admin: 02/04/18 02:25 Dose: 30 mg Admin: 02/03/18 06:05 Dose: 30 mg Admin: 02/02/18 13:50 Dose: 30 mg Admin: 02/01/18 16:59 Dose: 30 mg Naloxone HCl (Narcan) 0.4 mg IVPUSH Q2M PRN PRN Reason: Respiratory Distress Pantoprazole Sodium (Protonix Iv) 40 mg IVPUSH DAILY@1600 [facility] Last Admin: 02/03/18 16:18 Dose: 40 mg Admin: 02/02/18 15:22 Dose: 40 mg Admin: 02/01/18 17:14 Dose: 40 mg Sodium Chloride (Saline Flush) 10 ml FLUSH ASDIRECTED PRN PRN Reason: Keep Vein Open Last Admin: 02/01/18 17:06 Dose: 10 ml Admin: 02/01/18 16:14 Dose: 10 ml - Assessment Assessment (Free Text/Narrative):: Doing well, cont as is Will leave in [place] after major pelvic surgery - Plan Plan (Free Text/Narrative):: Above, Change IV fluids
[2018-02-04] MEDS: Dextrose 5%-Lact Ringers w/KCl 1,000 ML IV SCH (16:08)
[2018-02-04] MEDS: Pantoprazole 40 MG Vial IVPUSH SCH (16:18)
[2018-02-04] MEDS: Enoxaparin 40 MG/0.4 ML Syringe SUBCUT SCH (16:19)
[2018-02-05] MEDS: Ketorolac 30 MG/ML SDV IVPUSH SCH ×3 (00:49→12:29)
[2018-02-05] MEDS: Dextrose 5%-Lact Ringers w/KCl 1,000 ML IV SCH (03:53)
[2018-02-05] MEDS: Morphine PF 30 MG/30 ML PCA Vial IV PRN (04:06)
--- NOTE | 2018-02-05 11:13 | PCM.SURGPN ---
- General Info Date of Service: 02/05/18 POD#: 4 Functional Status: Reports: Pain Controlled, Ambulating, Incentive Spirometry ( less than 2 days ago) - Review of Systems General: Reports: No Symptoms Pulmonary: Reports: No Symptoms Cardiovascular: Reports: No Symptoms Gastrointestinal: Reports: Flatus (started last pm). Denies: Abdominal Pain - Patient Data Vitals - Most Recent: Last Vital Signs Temp 100.4 F 02/05/18 07:26 Pulse 97 02/05/18 07:26 Resp 20 02/05/18 07:26 BP 112/74 02/05/18 07:26 Pulse Ox 91 L 02/05/18 07:26 Weight - Most Recent: 80.739 kg I&O - Last 24 Hours: Intake & Output 02/04/18 02/05/18 02/05/18 22:59 06:59 14:59 Intake Total 717 860 Output Total 225 275 Balance 492 585 Med Orders - Current: Current Medications Enoxaparin Sodium (Lovenox) 40 mg SUBCUT Q24H [facility] Last Admin: 02/04/18 16:19 Dose: 40 mg Potassium Cl/Dextrose/Lact Ringer's (D5 Lr With 20 Meq Kcl) 1,000 mls @ 100 mls /hr IV ASDIRECTED [facility] Last Admin: 02/05/18 03:53 Dose: 100 mls/hr Ketorolac Tromethamine (Toradol) 30 mg IVPUSH Q6H [facility] Stop: 02/08/18 12:01 Last Admin: 02/05/18 06:16 Dose: 30 mg Morphine Sulfate (Morphine Funeral Planning Counselor 30 Mg In 30 Ml) 0 mg IV ASDIRECTED PRN; Protocol PRN Reason: Pain (severe 7-10) Last Admin: 02/05/18 04:06 Dose: 30 mg Naloxone HCl (Narcan) 0.4 mg IVPUSH Q2M PRN PRN Reason: Respiratory Distress Pantoprazole Sodium (Protonix Iv) 40 mg IVPUSH DAILY@1600 [facility] Last Admin: 02/04/18 16:18 Dose: 40 mg Sodium Chloride (Saline Flush) 10 ml FLUSH ASDIRECTED PRN PRN Reason: Keep Vein Open Last Admin: 02/01/18 17:06 Dose: 10 ml Discontinued Medications Cefoxitin Sodium (Mefoxin) 2 gm IV .STK-MED ONE Stop: 02/01/18 12:31 Dexamethasone (Dexamethasone) 8 mg IVPUSH .STK-MED ONE Stop: 02/01/18 12:31 Diphenhydramine HCl (Benadryl) 12.5 mg IVPUSH .STK-MED ONE Stop: 02/01/18 12:31 Ephedrine Sulfate (Ephedrine Sulfate) 20 mg IV .STK-MED ONE Stop: 02/01/18 12:31 Fentanyl (Sublimaze) 200 mcg IV .STK-MED ONE Stop: 02/01/18 12:31 Glycopyrrolate (Robinul) 0.4 mg IV .STK-MED ONE Stop: 02/01/18 12:31 Hydromorphone HCl (Dilaudid) 2 mg IV .STK-MED ONE Stop: 02/01/18 12:31 Hydroxyzine HCl (Vistaril) 50 mg IM ONETIME ONE Stop: 02/01/18 16:25 Last Admin: 02/01/18 16:28 Dose: 50 mg Lactated Ringer's (Ringers, Lactated) 1,000 mls @ 125 mls/hr IV ASDIRECTED [facility] Last Admin: 02/01/18 12:10 Dose: 125 mls/hr Cefoxitin Sodium 1 gm/ Premix 50 mls @ 100 mls/hr IV Q6H [facility] Stop: 02/03/18 05:29 Last Admin: 02/03/18 05:03 Dose: 100 mls/hr Lactated Ringer's (Ringers, Lactated) 1,000 mls @ 125 mls/hr IV ASDIRECTED [facility] Last Admin: 02/02/18 22:02 Dose: 125 mls/hr Lactated Ringer's (Ringers, Lactated) 1,000 mls @ 100 mls/hr IV ASDIRECTED [facility] Last Admin: 02/04/18 05:50 Dose: 100 mls/hr Lactated Ringer's (Ringers, Lactated) 1,000 mls @ as directed IV .STK-MED ONE Stop: 02/01/18 12:31 Ketorolac Tromethamine (Toradol) 30 mg IVPUSH .STK-MED ONE Stop: 02/01/18 12:31 Midazolam HCl (Versed 1 Mg/Ml) 2 mg IV .STK-MED ONE Stop: 02/01/18 12:31 Morphine Sulfate (Morphine) 2 mg IVPUSH Q3M PRN PRN Reason: Abdominal Pain Last Admin: 02/01/18 16:33 Dose: 2 mg Neostigmine Methylsulfate (Neostigmine Methylsulfate) 3 mg IVPUSH .STK-MED ONE Stop: 02/01/18 12:31 Ondansetron HCl (Zofran) 4 mg IVPUSH .STK-MED ONE Stop: 02/01/18 12:31 Propofol (Diprivan 20 Ml) 200 mg IV .STK-MED ONE Stop: 02/01/18 12:31 Rocuronium [place] (Zemuron) 100 mg IV .STK-MED ONE Stop: 02/01/18 12:31 Succinylcholine Chloride (Quelicin) 100 mg IV .STK-MED ONE Stop: 02/01/18 12:31 - Exam Wound/Incisions: Dressing Dry and Intact General: Alert, Oriented Lungs: Clear to Auscultation GI/Abdominal Exam: Soft, Non-Tender, Distended - Problem List Review Problem List Initiated/Reviewed/Updated: Yes - My Orders Last 24 Hours: Active Orders 24 hr Category Date Time Status BASIC METABOLIC PANEL,BMP [CHEM] Routine Lab 02/06/18 07:00 Ordered CBC W/O DIFF,HEMOGRAM [HEME] Routine Lab 02/06/18 07:00 Ordered Dextrose 5%-Lact Ringers w/KCl [D5 LR with 20 mEq KCl] Med 02/04/18 11:30 Active 1,000 ml IV ASDIRECTED Medication Orders Enoxaparin Sodium (Lovenox) 40 mg SUBCUT Q24H [facility] Last Admin: 02/04/18 16:19 Dose: 40 mg Admin: 02/03/18 16:19 Dose: 40 mg Admin: 02/02/18 16:25 Dose: 40 mg Potassium Cl/Dextrose/Lact Ringer's (D5 Lr With 20 Meq Kcl) 1,000 mls @ 100 mls /hr IV ASDIRECTED [facility] Last Admin: 02/05/18 03:53 Dose: 100 mls/hr Infusion: 02/05/18 02:08 Dose: 100 mls/hr Admin: 02/04/18 16:08 Dose: 100 mls/hr Ketorolac Tromethamine (Toradol) 30 mg IVPUSH Q6H [facility] Stop: 02/08/18 12:01 Last Admin: 02/05/18 06:16 Dose: 30 mg Admin: 02/05/18 00:49 Dose: 30 mg Admin: 02/04/18 17:55 Dose: 30 mg Admin: 02/04/18 11:47 Dose: 30 mg Admin: 02/04/18 06:04 Dose: 30 mg Admin: 02/04/18 00:19 Dose: 30 mg Admin: 02/03/18 18:19 Dose: 30 mg Admin: 02/03/18 11:35 Dose: 30 mg Morphine Sulfate (Morphine [employer] Planning Counselor 30 Mg In 30 Ml) 0 mg IV ASDIRECTED PRN; Protocol PRN Reason: Pain (severe 7-10) Last Admin: 02/05/18 04:06 Dose: 30 mg Admin: 02/04/18 12:28 Dose: 30 mg Admin: 02/04/18 02:25 Dose: 30 mg Admin: 02/03/18 06:05 Dose: 30 mg Admin: 02/02/18 13:50 Dose: 30 mg Admin: 02/01/18 16:59 Dose: 30 mg Naloxone HCl (Narcan) 0.4 mg IVPUSH Q2M PRN PRN Reason: Respiratory Distress Pantoprazole Sodium (Protonix Iv) 40 mg IVPUSH DAILY@1600 [facility] Last Admin: 02/04/18 16:18 Dose: 40 mg Admin: 02/03/18 16:18 Dose: 40 mg Admin: 02/02/18 15:22 Dose: 40 mg Admin: 02/01/18 17:14 Dose: 40 mg Sodium Chloride (Saline Flush) 10 ml FLUSH ASDIRECTED PRN PRN Reason: Keep Vein Open Last Admin: 02/01/18 17:06 Dose: 10 ml Admin: 02/01/18 16:14 Dose: 10 ml - Assessment Assessment (Free Text/Narrative):: Stable POD #4 Starting to have flatus but more distended Low grade temp - Plan Plan (Free Text/Narrative):: Cont as is Leave in [place] to monitor UO closely after major surgery Check labs in am
--- NOTE | 2018-02-05 12:31 | PCM.DCSUM1 ---
Discharge Summary - Hospital Course Free Text/Narrative:: Transfer to [facility] for post op anastamotic leak Brief History: Underwent takedown colostomy 4 days ago, doing well and started passing flatus last pm. Developed abd distension and fever this am. AXR shows free air. Abd is distended, no peritonitis yet, incision looks good. No OR crew available, spoke to Dr Lozano from surgery who accepts patient in transfer. Diagnosis: Stroke: No - Discharge Data Discharge Date: 02/05/18 Discharge Disposition: DC/Tfer to Acute Hospital 02 Condition: Good - Patient Summary/Data Operative Procedure(s) Performed: Sigmoid Colostomy takedown. Repair Peristomal Henia Complications: Anastamotic leak - Patient Instructions Diet: NPO Activity: Bedrest - Discharge Plan Home Medications: Home Meds Aspirin [Adult Aspirin] 81 mg PO DAILY 02/01/18 [History] Patient Handouts: End Colostomy Reversal, Care After, Fall Prevention in Hospitals, Adult, Deep Vein Thrombosis - Discharge Summary/Plan Comment DC Time >30 min.: Yes - Patient Data Vitals - Most Recent: Last Vital Signs Temp 102.4 F H 02/05/18 11:27 Pulse 97 02/05/18 07:26 Resp 20 02/05/18 07:26 BP 112/74 02/05/18 07:26 Pulse Ox 91 L 02/05/18 07:26 Weight - Most Recent: 80.739 kg I&O - Last 24 hours: Intake & Output 02/04/18 02/05/18 02/05/18 22:59 06:59 14:59 Intake Total 717 860 Output Total 225 275 Balance 492 585 Lab Results - Last 24 hrs: Laboratory Results - last 24 hr 02/05/18 02/05/18 Range/Units 12:14 12:15 WBC 17.7 H (4.5-12.0) X10-3/uL RBC 4.38 (4.30-5.75) x10(6)uL Hgb 14.2 (11.5-15.5) g/dL Hct 41.1 (30.0-51.3) % MCV 93.9 (80-96) fL MCH 32.3 (27.7-33.6) pg MCHC 34.4 (32.2-35.4) g/dL RDW 12.6 (11.5-15.5) % Plt Count 180 (125-369) X10(3)uL Urine Color Yellow (YELLOW) Urine Appearance Slightly cloudy (CLEAR) Urine pH 5.0 (5.0-6.5) Ur Specific [place] 1.020 (1.010-1.025) Urine Protein 30 H (NEGATIVE) mg/dL Urine Glucose (UA) Normal (NEGATIVE) mg/dL Urine Ketones Negative (NEGATIVE) mg/dL Urine Occult Blood Large H (NEGATIVE) Urine Nitrite Negative (NEGATIVE) Urine Bilirubin Small H (NEGATIVE) Urine Urobilinogen 1 H (NEGATIVE) mg/dL Ur Leukocyte Esterase Large H (NEGATIVE) Med Orders - Current: Current Medications Enoxaparin Sodium (Lovenox) 40 mg SUBCUT Q24H [facility] Last Admin: 02/04/18 16:19 Dose: 40 mg Potassium Cl/Dextrose/Lact Ringer's (D5 Lr With 20 Meq Kcl) 1,000 mls @ 100 mls /hr IV ASDIRECTED [facility] Last Admin: 02/05/18 03:53 Dose: 100 mls/hr Ketorolac Tromethamine (Toradol) 30 mg IVPUSH Q6H [facility] Stop: 02/08/18 12:01 Last Admin: 02/05/18 06:16 Dose: 30 mg Morphine Sulfate (Morphine [employer] 30 Mg In 30 Ml) 0 mg IV ASDIRECTED PRN; Protocol PRN Reason: Pain (severe 7-10) Last Admin: 02/05/18 04:06 Dose: 30 mg Naloxone HCl (Narcan) 0.4 mg IVPUSH Q2M PRN PRN Reason: Respiratory Distress Pantoprazole Sodium (Protonix Iv) 40 mg IVPUSH DAILY@1600 [facility] Last Admin: 02/04/18 16:18 Dose: 40 mg Sodium Chloride (Saline Flush) 10 ml FLUSH ASDIRECTED PRN PRN Reason: Keep Vein Open Last Admin: 02/01/18 17:06 Dose: 10 ml Discontinued Medications Cefoxitin Sodium (Mefoxin) 2 gm IV .STK-MED ONE Stop: 02/01/18 12:31 Dexamethasone (Dexamethasone) 8 mg IVPUSH .STK-MED ONE Stop: 02/01/18 12:31 Diphenhydramine HCl (Benadryl) 12.5 mg IVPUSH .STK-MED ONE Stop: 02/01/18 12:31 Ephedrine Sulfate (Ephedrine Sulfate) 20 mg IV .STK-MED ONE Stop: 02/01/18 12:31 Fentanyl (Sublimaze) 200 mcg IV .STK-MED ONE Stop: 02/01/18 12:31 Glycopyrrolate (Robinul) 0.4 mg IV .STK-MED ONE Stop: 02/01/18 12:31 Hydromorphone HCl (Dilaudid) 2 mg IV .STK-MED ONE Stop: 02/01/18 12:31 Hydroxyzine HCl (Vistaril) 50 mg IM ONETIME ONE Stop: 02/01/18 16:25 Last Admin: 02/01/18 16:28 Dose: 50 mg Lactated Ringer's (Ringers, Lactated) 1,000 mls @ 125 mls/hr IV ASDIRECTED [facility] Last Admin: 02/01/18 12:10 Dose: 125 mls/hr Cefoxitin Sodium 1 gm/ Premix 50 mls @ 100 mls/hr IV Q6H [facility] Stop: 02/03/18 05:29 Last Admin: 02/03/18 05:03 Dose: 100 mls/hr Lactated Ringer's (Ringers, Lactated) 1,000 mls @ 125 mls/hr IV ASDIRECTED [facility] Last Admin: 02/02/18 22:02 Dose: 125 mls/hr Lactated Ringer's (Ringers, Lactated) 1,000 mls @ 100 mls/hr IV ASDIRECTED [facility] Last Admin: 02/04/18 05:50 Dose: 100 mls/hr Lactated Ringer's (Ringers, Lactated) 1,000 mls @ as directed IV .STK-MED ONE Stop: 02/01/18 12:31 Ketorolac Tromethamine (Toradol) 30 mg IVPUSH .STK-MED ONE Stop: 02/01/18 12:31 Midazolam HCl (Versed 1 Mg/Ml) 2 mg IV .STK-MED ONE Stop: 02/01/18 12:31 Morphine Sulfate (Morphine) 2 mg IVPUSH Q3M PRN PRN Reason: Abdominal Pain Last Admin: 02/01/18 16:33 Dose: 2 mg Neostigmine Methylsulfate (Neostigmine Methylsulfate) 3 mg IVPUSH .STK-MED ONE Stop: 02/01/18 12:31 Ondansetron HCl (Zofran) 4 mg IVPUSH .STK-MED ONE Stop: 02/01/18 12:31 Propofol (Diprivan 20 Ml) 200 mg IV .STK-MED ONE Stop: 02/01/18 12:31 Rocuronium [place] (Zemuron) 100 mg IV .STK-MED ONE Stop: 02/01/18 12:31 Succinylcholine Chloride (Quelicin) 100 mg IV .STK-MED ONE Stop: 02/01/18 12:31
[2018-02-05] MEDS ORDERED: Piperacillin/Tazobactam 3.375 GM in Sodium Chloride 0.9% 50 ML IV ONE (12:38)
--- NOTE | 2018-02-06 13:11 | CR ---
INDICATION: Distention, fevers, and recent surgery of takedown of sigmoid colostomy with end-to-end anastomosis, post perforated sigmoid diverticulitis. CHEST: An upright view of the chest was obtained 02/05/2018 - no comparisons. Massive free air is noted under the hemidiaphragm leaves, which may be in part due to recent surgery. It could be due to dehiscence of anastomosis and should be correlated clinically, therefore. Atelectatic appearing changes are noted at the lung bases, possibly some effusion may be present on the left especially. The heart did not appear grossly enlarged, but there was somewhat of a prominent left ventricular contour, which can be seen with minimal left ventricular aneurysm - correlate clinically. The aorta is somewhat tortuous. IMPRESSION: Basilar changes, mostly on the left, may represent postsurgical change, atelectasis, and possibly pleural effusion. Pneumonia is difficult to entirely exclude at the left lung base, however. Massive free air is noted. ABDOMEN: Three images of the abdomen were obtained, 02/05/2018, and compared with 11/22/2017, now revealing massive free air under the hemidiaphragm leaves. The amount of air could be consistent with recent surgery but should be correlated clinically. He has a possibility of viscous rupture or dehiscence of suture lines cannot be excluded. Multiple air fluid levels and minimally distended appearing large bowel and nondistended small bowel with some air fluid levels is noted with appearance compatible with postsurgical changes, including paralytic ileus. There is some minimal gas in the rectal area and also a moderate amount of gas in the rectosigmoid area. No definite mass lesions were seen. Skin zheng are noted, compatible with recent surgery. IMPRESSION: Evidence of recent surgery and massive amount of free air, which is felt to be inconsistent with surgery four days prior; however, at least a portion of the air could be on the basis of recent surgery. Cannot exclude perforation or dehiscence of suture lines for anastomosis, however - correlate clinically. [facility]
== END 2018-02-05 13:30 | DRG 330 ==
LOC: FB.MS 10:25
PROVIDERS: ADMIT Surgery; ATTEND Surgery
PROC: 0DBN0ZZ Excision of Sigmoid Colon, Open Approach (ICD-10-PCS; principal; 2018-02-01)
PROC: 0WQF0ZZ Repair Abdominal Wall, Open Approach (ICD-10-PCS; 2018-02-01)
DX: K43.5 Parastomal hernia without obstruction or gangrene (principal); J95.812 Postprocedural air leak; K91.89 Other postprocedural complications and disorders of digestive system; Z87.19 Personal history of other diseases of the digestive system; Z90.49 Acquired absence of other specified parts of digestive tract; Z43.3 Encounter for attention to colostomy; Y83.2 Surgical operation with anastomosis, bypass or graft as the cause of abnormal reaction of the patient, or of later complication, without mention of misadventure at the time of the procedure; Y92.239 Unspecified place in hospital as the place of occurrence of the external cause; Z79.82 Long term (current) use of aspirin
CPT/HCPCS: 36415; 74022; 80048; 80053; 81003; 85027; 87086; 94150; C9113; J0330; J0694; J1100; J1170; J1200; J1650; J1885; J2250; J2270; J2274; J2405; J2543; J2704; J2710; J3010; J3410; J3480; J3490; J7050; J7120